=== PATIENT | female | born 1970 | race Caucasian/White ===

== ENCOUNTER 2021-12-01 12:17 | Inpatient (IN) | payer MEDICAID ==
[~2021-12-01] VITALS: Ht 160 cm; Wt 118.9 kg
[2021-12-01] VITALS (7 sets, daily range): BP systolic 70–136; BP diastolic 52–104
--- NOTE | 2021-12-01 12:52 | NUR ---
at bedside to examine pt.
[2021-12-01] MEDS ORDERED: APRE30TA2 PO (12:55)
[2021-12-01] MEDS ORDERED: PRED50TA PO (12:55)
[2021-12-01] MEDS ORDERED: DILTIAZEM HCL 50 MG IV ONE (13:09)
[2021-12-01] MEDS ORDERED: DILTIAZEM HCL 25 MG IV IV ONE (13:15)
[2021-12-01] MEDS ORDERED: DILTIAZEM HCL IV 125 MG in IV DEXTROSE 5% 100 ML IV ONE (13:15)
[2021-12-01 13:25] LABS: HEMATOCRIT 43.8 % (31.2-41.9); MEAN CORPUSCULAR HEMOGLOBIN 28.7 uug (24.7-32.8); MEAN CORPUSCULAR VOLUME 89.6 fL (75.5-95.3); PLATELET COUNT (AUTO) 212 K/uL (179-408)
[2021-12-01 13:56] LABS: CARBON DIOXIDE 27 mmol/L (21-32); CHLORIDE 105 mmol/L (98-107); CREATININE 1.4 mg/dL (0.6-1.3); GLUCOSE 144 mg/dL (74-106); POTASSIUM 5.1 mmol/L (3.5-5.1); UREA NITROGEN, BLOOD 60 mg/dL (7-18)
--- NOTE | 2021-12-01 14:00 | NUR ---
Increased Cardizem drip to 10 mg/hr, HR 130, BP 126/78.
[2021-12-01 14:10] LABS: ALANINE AMINOTRANSFERASE 41 U/L (14-59); ALKALINE PHOSPHATASE 211 U/L (50-136); ASPARTATE AMINOTRANSFERASE 13 U/L (15-37); BILIRUBIN,DIRECT 0.5 mg/dL (0.0-0.2); BILIRUBIN,TOTAL 1.2 mg/dL (0.2-1.0); TOTAL PROTEIN, SERUM 6.3 g/dL (6.4-8.2)
[2021-12-01] MEDS ORDERED: ASPIRIN 81 MG TAB.CHEW ONE (14:22)
--- NOTE | 2021-12-01 14:31 | NUR ---
Cardizem increased to 15mg/hr, HR 122, BP 120/72.
[2021-12-01] MEDS ORDERED: VANCOMYCIN IV 1,000 MG in IV DEXTROSE 5% 250 ML IV ONE (14:45)
[2021-12-01] MEDS ORDERED: PIPERACILLIN SODIUM/TAZOBACTAM 3.375 G in IV DEXTROSE 5% 50 ML IV ONE (14:45)
[2021-12-01] MEDS ORDERED: FUROSEMIDE 40 MG/4 ML VIAL IV ONE (14:45)
[2021-12-01] MEDS ORDERED: ASPIRIN 81 MG TAB.CHEW PO ONE ×2 (14:45)
[2021-12-01] MEDS ORDERED: VANCOMYCIN IV 200 ML ONE (14:56)
[2021-12-01] MEDS ORDERED: FUROSEMIDE 40 MG/4 ML VIAL ONE (14:56)
[2021-12-01] MEDS ORDERED: PIPERACILLIN/TAZOBACTAM/D5W 50 ML IV ONE (14:56)
[2021-12-01] MEDS ORDERED: IOHEXOL 350 100 ML INFUS..BTL ONE (15:29)
[2021-12-01] MEDS ORDERED: SWABABLE VALVE TRANSFER SET EA MC ONE (15:30)
[2021-12-01] MEDS ORDERED: IV NORMAL SALINE 250 ML IV ONE (15:30)
--- NOTE | 2021-12-01 16:08 | NUR ---
Pt signed consent for CTA, placed in the chart.
[2021-12-01] MEDS ORDERED: ENOXAPARIN SODIUM 100 MG/ML DISP.SYRIN SQ ONE ×2 (16:30→16:59)
--- NOTE | 2021-12-01 17:00 | NUR ---
Patient is a 51 year-old female admitted to ICU with diagnosis of A. fib with RVR/ACS/infection. Patient is AO x 4. Atrial fibrillation with heart rate in the 100s. Blood prssure 130/100. On 3L nasal cannula due to shortness of breath. Saturating in the 98%. Patient's abdomen is distended and firm. Patient presents with bilateral leg wound ulcers. Dressing intact. Awaiting admission orders.
[2021-12-01] MEDS ORDERED: ONDANSETRON 4 MG/2 ML VIAL IV PRN (18:00)
[2021-12-01] MEDS ORDERED: DEXTROSE 50% 50 ML DISP.SYRIN IV PRN (18:15)
[2021-12-01] MEDS ORDERED: AMIODARONE HCL IV 450 MG in IV DEXTROSE 5% 250 ML IV PRN (18:30)
[2021-12-01] MEDS ORDERED: AMIODARONE HCL IV 150 MG in IV DEXTROSE 5% 100 ML IV ONE (18:30)
--- NOTE | 2021-12-01 18:45 | NUR ---
Per Dr. Terrell, no bolus for heparin drip.
[2021-12-01] MEDS ORDERED: HEPARIN/D5W DRIP 500 ML IV PRN (19:30)
[2021-12-01] MEDS ORDERED: VANCOMYCIN IV 1,000 MG in IV DEXTROSE 5% 250 ML IV SCH (20:00)
--- NOTE | 2021-12-01 21:19 | NUR ---
Dr Olson into eval patient. Made aware of Vitals 73/33. Patient is awake A/Ox3. Denies CP, SOB. Dr Chavez will placed orders for low BP.
[2021-12-01] MEDS ORDERED: PIPERACILLIN SODIUM/TAZOBACTAM 3.375 G in IV DEXTROSE 5% 50 ML IV SCH (22:00)
[2021-12-01] MEDS: BLOOD SUGAR DIAGNOSTIC 1 EACH STRIP VI SCH (22:04)
[2021-12-01] MEDS ORDERED: DOCUSATE SODIUM 100 MG CAPSULE PO ONE (22:06)
[2021-12-01] MEDS ORDERED: methylPREDNISolone SOD SUCC 40 MG/ML VIAL ONE (22:06)
[2021-12-01] MEDS ORDERED: INSULIN REGULAR, HUMAN 300 UNIT/3 ML VIAL ONE (22:06)
[2021-12-01] MEDS: DOCUSATE SODIUM 100 MG CAPSULE PO SCH (22:10)
[2021-12-01] MEDS: methylPREDNISolone SOD SUCC 40 MG/ML VIAL IV SCH (22:10)
[2021-12-01] MEDS: INSULIN REGULAR, HUMAN 300 UNIT/3 ML VIAL SQ PRN (22:14)
[2021-12-01] MEDS: CEFEPIME HCL 1 G in IV DEXTROSE 5% 50 ML IV SCH (22:26)
--- NOTE | 2021-12-01 23:00 | NUR ---
Piccline here to place line.
[2021-12-02] VITALS (21 sets, daily range): BP systolic 117–198; BP diastolic 55–130
--- NOTE | 2021-12-02 01:45 | NUR ---
Patient went down for CTA but was not done due to midline not flushing adequately.
[2021-12-02] MEDS: CEFEPIME HCL 1 G in IV DEXTROSE 5% 50 ML IV SCH ×3 (05:06→21:38)
[2021-12-02 05:13] LABS: HEMATOCRIT 43.2 % (31.2-41.9); MEAN CORPUSCULAR VOLUME 90.6 fL (75.5-95.3); PLATELET COUNT (AUTO) 217 K/uL (179-408)
[2021-12-02 05:28] LABS: BILIRUBIN,TOTAL 1.4 mg/dL (0.2-1.0); CREATININE 1.8 mg/dL (0.6-1.3); MAGNESIUM 2.7 mg/dL (1.8-2.4); PHOSPHOROUS 5.4 mg/dL (2.5-4.9); POTASSIUM 5.6 mmol/L (3.5-5.1); TOTAL PROTEIN, SERUM 6.3 g/dL (6.4-8.2)
[2021-12-02 05:39] LABS: THYROID STIMULATING HORMONE 2.295 mIU/mL (0.358-3.740)
[2021-12-02] MEDS ORDERED: PANTOPRAZOLE SODIUM 40 MG TABLET.DR PO ONE (07:07)
[2021-12-02] MEDS: PANTOPRAZOLE SODIUM 40 MG TABLET.DR PO SCH (07:08)
[2021-12-02] MEDS: BLOOD SUGAR DIAGNOSTIC 1 EACH STRIP VI SCH ×4 (07:11→21:14)
[2021-12-02] MEDS ORDERED: DILTIAZEM HCL 60 MG TABLET PO SCH (07:52)
[2021-12-02] MEDS ORDERED: DILTIAZEM HCL 30 MG TABLET PO SCH (08:00)
[2021-12-02] MEDS ORDERED: FUROSEMIDE 20 MG/2 ML VIAL IV SCH ×2 (09:00)
--- NOTE | 2021-12-02 09:54 | NUR ---
RN requested to come back later for US Kidneys since the patient is having breakfast.
[2021-12-02] MEDS ORDERED: methylPREDNISolone SOD SUCC 40 MG/ML VIAL ONE (09:59)
[2021-12-02] MEDS ORDERED: FUROSEMIDE 40 MG/4 ML VIAL ONE ×2 (09:59→18:04)
[2021-12-02 10:00] LABS: *BILIRUBIN,URIN 1+ (NEGATIVE); *BLOOD, URINE 3+ (NEGATIVE); *CLARITY,URINE CLEAR (CLEAR); *COLOR,URINE YELLOW (YELLOW); *KETONES,URINE NEGATIVE (NEGATIVE); LEUKOCYTE ESTERASE ,URINE NEGATIVE (NEGATIVE); NITRITE, URINE NEGATIVE (NEGATIVE); UGLUCOSE NEGATIVE (NEGATIVE)
[2021-12-02] MEDS ORDERED: DILTIAZEM HCL 60 MG TABLET ONE ×2 (10:00→18:03)
[2021-12-02 10:02] LABS: *CREATININE,URINE 179.8 mg/dL (30-125)
[2021-12-02] MEDS: methylPREDNISolone SOD SUCC 40 MG/ML VIAL IV SCH ×2 (10:03→21:17)
[2021-12-02] MEDS: FUROSEMIDE 40 MG/4 ML VIAL IVP SCH ×2 (10:05→18:09)
[2021-12-02] MEDS: APIXABAN 5 MG TABLET PO SCH ×2 (10:06→21:21)
--- NOTE | 2021-12-02 11:12 | NUR ---
Not enough room for the machine. ZEFERINO Mars will give a call to the tech when there is enough space for the machine.
--- NOTE | 2021-12-02 12:48 | NUR ---
WOUND CARE CONSULT: PT SEEN WITH [facility] FOR SKIN ASSESSMENT. PT NOTED TO HAVE BILATERAL LOWER LEG ULCERS, PRESENT ON ADMISSION. RECOMMEND DPM CONSULT. DR SALGADO NOTIFIED. RECOMMENDATIONS MADE FOR SKIN PROTECTION. DISCUSSED WITH NURSING STAFF. MD IN AGREEMENT WITH PLAN OF CARE.
[2021-12-02] MEDS ORDERED: REMEDY ESSENTIAL ZINC PASTE 113 GM TOP PRN (13:00)
[2021-12-02] MEDS: INSULIN REGULAR, HUMAN 300 UNIT/3 ML VIAL SQ PRN ×3 (13:13→21:25)
[2021-12-02 14:03] LABS: WBC,URINE 0-3 /HPF (0-3)
[2021-12-02 14:04] LABS: SQUAMOUS EPITHELIAL CELL,UR FEW /HPF (NONE SEEN)
[2021-12-02 14:08] LABS: BACTERIA,URINE MANY /HPF (NONE SEEN)
[2021-12-02] MEDS ORDERED: VANCOMYCIN IV 1,500 MG in IV DEXTROSE 5% 500 ML IV SCH (17:00)
[2021-12-02] MEDS: DILTIAZEM HCL 60 MG TABLET PO SCH (18:09)
[2021-12-02] MEDS: CLOTRIMAZOLE/BETAMET DIPROP CREAM 15 GM TUBE TOP SCH ×2 (18:17→21:20)
[2021-12-02] MEDS: DOCUSATE SODIUM 100 MG CAPSULE PO SCH (21:17)
[2021-12-02] MEDS: REMEDY ESSENTIAL ZINC PASTE 113 GM TOP SCH (21:20)
--- NOTE | 2021-12-02 21:49 | NUR ---
Received pt. AAOX4. Cardiac-manley on cont/uncontrolled A-fib in he low 100's. sbp within desired limits. Respiratory-manley pt. on 3LNC with saturation above 95%, pt. unable to lie on her back becoming short of breath and with labor breathing noted. IV access patent peripherally. ML to RUE patent and flushing well, with no signs of infiltration. BLE with dressing c.d.i. and will be treated as ordered.
--- NOTE | 2021-12-02 22:00 | NUR ---
At this time patient stating "I'm hangry I didn't get any food during the day and I want to eat". patient provided with left over dinner.
[2021-12-03] VITALS (27 sets, daily range): BP systolic 107–189; BP diastolic 48–123
[2021-12-03] MEDS: MORPHINE SULFATE 2 MG/1 ML DISP.SYRIN IV PRN ×2 (00:06→04:03)
[2021-12-03] MEDS: DILTIAZEM HCL 60 MG TABLET PO SCH ×2 (01:07→06:33)
--- NOTE | 2021-12-03 02:43 | NUR ---
for a sustained SBP 160's 180's production analyst press operator [employer] called and orders received from Dr. Johnson.
[2021-12-03] MEDS ORDERED: hydrALAZINE HCL 20 MG/1 ML VIAL IV PRN ×2 (02:45→06:00)
[2021-12-03 05:02] LABS: HEMATOCRIT 41.9 % (31.2-41.9); MEAN CORPUSCULAR HEMOGLOBIN 29.2 uug (24.7-32.8); MEAN CORPUSCULAR VOLUME 90.6 fL (75.5-95.3); PLATELET COUNT (AUTO) 215 K/uL (179-408)
[2021-12-03 05:13] LABS: BILIRUBIN,TOTAL 0.9 mg/dL (0.2-1.0); CREATININE 2.1 mg/dL (0.6-1.3); MAGNESIUM 2.4 mg/dL (1.8-2.4); PHOSPHOROUS 5.9 mg/dL (2.5-4.9); TOTAL PROTEIN, SERUM 6.5 g/dL (6.4-8.2)
[2021-12-03] MEDS: CEFEPIME HCL 1 G in IV DEXTROSE 5% 50 ML IV SCH (06:05)
[2021-12-03] MEDS: PANTOPRAZOLE SODIUM 40 MG TABLET.DR PO SCH (06:24)
[2021-12-03] MEDS ORDERED: DILTIAZEM HCL 30 MG TABLET ONE (06:30)
--- NOTE | 2021-12-03 06:40 | NUR ---
Left pt. resting comfortably, no c/o pain. On 3 LNC saturation of 99%. Cardiac-manley pt. on controlled A-fib rate of 80-to low 100's SBP now within desired limits. Earlier with the need of prn for higher sbp. pack to gravity adequate urine output. IV line patent. BLE wih dressing changed as ordered.
--- NOTE | 2021-12-03 07:48 | NUR ---
Dr. Brown at bedside assessing patient.
[2021-12-03] MEDS: INSULIN REGULAR, HUMAN 300 UNIT/3 ML VIAL SQ PRN ×4 (08:06→22:27)
[2021-12-03] MEDS: BLOOD SUGAR DIAGNOSTIC 1 EACH STRIP VI SCH ×4 (08:10→22:15)
--- NOTE | 2021-12-03 08:49 | NUR ---
ZEFERINO Chu requested to come back in half an hour.
[2021-12-03] MEDS: FUROSEMIDE 40 MG/4 ML VIAL IVP SCH ×2 (08:50→17:03)
[2021-12-03] MEDS: methylPREDNISolone SOD SUCC 40 MG/ML VIAL IV SCH ×2 (08:50→21:59)
[2021-12-03] MEDS: REMEDY ESSENTIAL ZINC PASTE 113 GM TOP SCH ×2 (08:51→21:00)
[2021-12-03] MEDS: CLOTRIMAZOLE/BETAMET DIPROP CREAM 15 GM TUBE TOP SCH ×2 (08:51→22:00)
[2021-12-03] MEDS ORDERED: DILTIAZEM HCL CD 240 MG CAP.SR.24H PO SCH (09:00)
[2021-12-03] MEDS: AMLODIPINE 5 MG TABLET PO SCH (09:06)
[2021-12-03] MEDS: APIXABAN 5 MG TABLET PO SCH ×2 (09:07→22:41)
[2021-12-03] MEDS: DILTIAZEM HCL CD 240 MG CAP.SR.24H PO SCH (10:00)
[2021-12-03] MEDS: CEFEPIME HCL 2 G in IV DEXTROSE 5% 100 ML IV SCH (14:16)
[2021-12-03] MEDS: hydrALAZINE HCL 50 MG TABLET PO SCH ×3 (14:19→22:42)
--- NOTE | 2021-12-03 16:43 | NUR ---
Report given to Robb MCGARRY.
--- NOTE | 2021-12-03 17:58 | NUR ---
Cancel transfer to telemetry due to increased SOB at rest, lethargy with 530mL output after Lasix given this morning. Informed cardiology and will keep in ICU and order ABGs.
[2021-12-03 18:17] LABS: ABG HCO3 23.6 mmol/L; ABG PO2 100.4 mmHg (75.0-100.0); ABG SITE RIGHT RADIAL; ABG TOTAL HEMOGLOBIN 14.1 G/dL (12.0-16.0); COHb 0.7 % (0.5-1.5); MetHb 0.2 % (0.0-1.5); O2Hb 96.7 % (94.0-97.0); VENT MODE Nasal Cannula
--- NOTE | 2021-12-03 19:30 | NUR ---
Called [facility] line and they notified me that Narayan Plunkett is covering [place] at this time. Notified Narayan that patient is being kept CCU status due to increased SOB, lethargy, and urine output of 500mL after Lasix was given this morning. Consulted with cardiology and recommended to draw ABG and to keep patient in CCU.
[2021-12-03] MEDS ORDERED: methylPREDNISolone SOD SUCC 40 MG/ML VIAL ONE (21:54)
[2021-12-03] MEDS ORDERED: DOCUSATE SODIUM 100 MG CAPSULE PO ONE (21:54)
[2021-12-03] MEDS: LINEZOLID 600 MG TABLET PO SCH (21:59)
[2021-12-03] MEDS: DOCUSATE SODIUM 100 MG CAPSULE PO SCH (22:00)
[2021-12-03] MEDS ORDERED: APIXABAN 5 MG TABLET ONE (22:31)
[2021-12-03] MEDS ORDERED: hydrALAZINE HCL 25 MG TABLET ONE (22:32)
[2021-12-04] VITALS (21 sets, daily range): BP systolic 114–168; BP diastolic 60–98
[2021-12-04] MEDS ORDERED: FUROSEMIDE 40 MG/4 ML VIAL ONE ×3 (00:44→16:48)
[2021-12-04] MEDS ORDERED: FUROSEMIDE 20 MG/2 ML VIAL ONE (00:45)
[2021-12-04] MEDS: FUROSEMIDE 40 MG/4 ML VIAL IVP SCH ×3 (01:10→16:50)
[2021-12-04] MEDS: CEFEPIME HCL 2 G in IV DEXTROSE 5% 100 ML IV SCH ×2 (01:13→14:24)
[2021-12-04] MEDS ORDERED: hydrALAZINE HCL 25 MG TABLET ONE ×2 (06:24→14:25)
[2021-12-04] MEDS: hydrALAZINE HCL 50 MG TABLET PO SCH ×3 (06:29→21:20)
[2021-12-04] MEDS ORDERED: PANTOPRAZOLE SODIUM 40 MG TABLET.DR PO ONE (07:32)
[2021-12-04] MEDS: PANTOPRAZOLE SODIUM 40 MG TABLET.DR PO SCH (07:38)
[2021-12-04] MEDS: BLOOD SUGAR DIAGNOSTIC 1 EACH STRIP VI SCH ×4 (07:38→21:07)
[2021-12-04 07:40] LABS: HEMATOCRIT 39.3 % (31.2-41.9); MEAN CORPUSCULAR HEMOGLOBIN 28.9 uug (24.7-32.8); MEAN CORPUSCULAR VOLUME 89.9 fL (75.5-95.3); PLATELET COUNT (AUTO) 232 K/uL (179-408)
[2021-12-04] MEDS: INSULIN REGULAR, HUMAN 300 UNIT/3 ML VIAL SQ PRN ×4 (07:52→21:08)
[2021-12-04 07:56] LABS: BILIRUBIN,TOTAL 0.9 mg/dL (0.2-1.0); CREATININE 2.1 mg/dL (0.6-1.3); MAGNESIUM 2.5 mg/dL (1.8-2.4); POTASSIUM 3.9 mmol/L (3.5-5.1); TOTAL PROTEIN, SERUM 6.6 g/dL (6.4-8.2)
[2021-12-04] MEDS ORDERED: METOLAZONE 2.5 MG TABLET PO ONE (08:15)
[2021-12-04] MEDS ORDERED: DILTIAZEM HCL CD 120 MG CAP.SR.24H PO ONE (08:33)
[2021-12-04] MEDS ORDERED: AMLODIPINE 5 MG TABLET ONE (08:33)
[2021-12-04] MEDS ORDERED: methylPREDNISolone SOD SUCC 40 MG/ML VIAL ONE ×2 (08:33→21:24)
[2021-12-04] MEDS: AMLODIPINE 5 MG TABLET PO SCH (08:39)
[2021-12-04] MEDS: LINEZOLID 600 MG TABLET PO SCH ×2 (08:40→21:19)
[2021-12-04] MEDS: DILTIAZEM HCL CD 240 MG CAP.SR.24H PO SCH (08:40)
[2021-12-04] MEDS: methylPREDNISolone SOD SUCC 40 MG/ML VIAL IV SCH ×2 (08:41→21:25)
[2021-12-04] MEDS: THERAHONEY GEL 1.5 OZ TUBE TOP SCH (08:43)
[2021-12-04] MEDS: REMEDY ESSENTIAL ZINC PASTE 113 GM TOP SCH ×2 (08:43→21:07)
[2021-12-04] MEDS: CLOTRIMAZOLE/BETAMET DIPROP CREAM 15 GM TUBE TOP SCH ×2 (08:43→21:22)
[2021-12-04] MEDS: APIXABAN 5 MG TABLET PO SCH ×2 (08:52→21:21)
--- NOTE | 2021-12-04 20:00 | NUR ---
PATIENT FAMILY MEMBERS AT B/S VISITING PATIENT .
--- NOTE | 2021-12-04 21:07 | NUR ---
FINGERSTICK DONE 239 MG/DL FOLLOW INSULIN SLIDING SCALE .
--- NOTE | 2021-12-04 21:15 | NUR ---
PER PATIENT SE DID NOT EAT DINNER ,GIVEN DINNER TRAY .PATIENT ABLE TO FEED SELF AND HOB UP 30 DEGREES . DUE MEDICATION GIVEN AND SCAN SEE EMAR .
[2021-12-04] MEDS ORDERED: DOCUSATE SODIUM 100 MG CAPSULE PO ONE (21:24)
[2021-12-04] MEDS: DOCUSATE SODIUM 100 MG CAPSULE PO SCH (21:25)
[2021-12-04] MEDS ORDERED: ACETAMINOPHEN 325 MG TABLET ONE (23:05)
[2021-12-04] MEDS: ACETAMINOPHEN 325 MG TABLET PO PRN (23:09)
--- NOTE | 2021-12-04 23:13 | NUR ---
PATIENT REQUESTED FOR PAIN MEDICATION C/O BILATERAL LOWER LEG PAIN 11/16, GIVEN PRN TYLENO FOR PAIN . BILATERAL LOWER EXTREMITIES ELEVATED WITH PILLOWS .
[2021-12-05] VITALS (15 sets, daily range): BP systolic 99–155; BP diastolic 50–110
[2021-12-05] MEDS ORDERED: FUROSEMIDE 40 MG/4 ML VIAL ONE ×2 (00:29→08:13)
[2021-12-05] MEDS: FUROSEMIDE 40 MG/4 ML VIAL IVP SCH ×3 (00:31→17:23)
[2021-12-05] MEDS: CEFEPIME HCL 2 G in IV DEXTROSE 5% 100 ML IV SCH (01:12)
--- NOTE | 2021-12-05 01:30 | NUR ---
SLEEPING IN BED ON AND OFF ANSWERS HER CELL PHONE .
--- NOTE | 2021-12-05 01:38 | NUR ---
WITH ANOTHER RN TURNED AND REPOSITION PATIENT . ELEVATED BILATERAL LOWER EXTREMITIES WITH PILLOWS . OFFLOADED BACK WITH PILLOWS .
--- NOTE | 2021-12-05 04:30 | NUR ---
AM CARE DONE,BATH PATIENT WITH CONCRETE CURER HELP .CHANGED SOILED LINENS AND GOWN .PERINEAL CARE AND CHAVEZ CARE DONE . ASSISTED WITH ORAL CARE . TURNED AND REPOSITION AND BUE ELEVATED WITH PILLOW HEELS OFF LOADED FROM BED .
[2021-12-05 04:54] LABS: HEMATOCRIT 37.6 % (31.2-41.9); MEAN CORPUSCULAR VOLUME 89.1 fL (75.5-95.3); PLATELET COUNT (AUTO) 201 K/uL (179-408)
[2021-12-05 05:00] LABS: CREATININE 2.1 mg/dL (0.6-1.3); POTASSIUM 2.9 mmol/L (3.5-5.1)
[2021-12-05] MEDS ORDERED: PANTOPRAZOLE SODIUM 40 MG TABLET.DR PO ONE (05:42)
[2021-12-05] MEDS: hydrALAZINE HCL 50 MG TABLET PO SCH ×3 (05:43→21:29)
[2021-12-05] MEDS: PANTOPRAZOLE SODIUM 40 MG TABLET.DR PO SCH (06:02)
[2021-12-05] MEDS: BLOOD SUGAR DIAGNOSTIC 1 EACH STRIP VI SCH ×4 (06:51→21:18)
--- NOTE | 2021-12-05 07:15 | NUR ---
Received report from cyber intelligence analyst nurse, patients midline has no blood return and was qauestionable placement as the arm is bruised and swollen. Midline removed and informed supervisor cartography for need of replacement with PICC line.
[2021-12-05] MEDS: INSULIN REGULAR, HUMAN 300 UNIT/3 ML VIAL SQ PRN ×4 (07:27→21:28)
[2021-12-05] MEDS ORDERED: POTASSIUM CHLORIDE 20 MEQ POWDER PACKET GT ONE (07:45)
[2021-12-05 08:06] LABS: A/G RATIO 0.8 (0.7-1.7); ALBUMIN 2.7 g/dL (2.9-4.4); ALBUMIN 2.8 g/dL (2.9-4.4); ALPHA-1-GLOBULIN 0.3 g/dL (0.0-0.4); ALPHA-1-GLOBULIN 0.4 g/dL (0.0-0.4); ALPHA-2-GLOBULIN 0.8 g/dL (0.4-1.0); ALPHA-2-GLOBULIN 0.9 g/dL (0.4-1.0); BETA GLOBULIN 1.1 g/dL (0.7-1.3); BETA GLOBULIN 1.2 g/dL (0.7-1.3); GLOBULIN, TOTAL 3.4 g/dL (2.2-3.9); M-SPIKE Not Observed g/dL (Not Observed)
[2021-12-05] MEDS ORDERED: LINEZOLID 600 MG/300 ML PIGGYBACK IV ONE (08:13)
[2021-12-05] MEDS ORDERED: methylPREDNISolone SOD SUCC 40 MG/ML VIAL ONE (08:13)
[2021-12-05] MEDS ORDERED: AMLODIPINE 5 MG TABLET ONE (08:13)
[2021-12-05] MEDS ORDERED: POTASSIUM CHLORIDE 20 MEQ POWDER PACKET ONE (08:13)
[2021-12-05] MEDS ORDERED: CARVEDILOL 25 MG TABLET ONE (08:13)
[2021-12-05] MEDS: CARVEDILOL 25 MG TABLET PO SCH ×2 (08:16→17:23)
[2021-12-05] MEDS: methylPREDNISolone SOD SUCC 40 MG/ML VIAL IV SCH ×2 (08:16→21:12)
[2021-12-05] MEDS: AMLODIPINE 5 MG TABLET PO SCH (08:17)
[2021-12-05] MEDS: LINEZOLID 600 MG TABLET PO SCH ×2 (08:18→21:14)
[2021-12-05] MEDS: REMEDY ESSENTIAL ZINC PASTE 113 GM TOP SCH ×2 (08:19→21:24)
[2021-12-05] MEDS: CLOTRIMAZOLE/BETAMET DIPROP CREAM 15 GM TUBE TOP SCH ×2 (08:19→21:25)
[2021-12-05] MEDS: THERAHONEY GEL 1.5 OZ TUBE TOP SCH (08:19)
[2021-12-05] MEDS: APIXABAN 5 MG TABLET PO SCH ×2 (08:21→21:18)
--- NOTE | 2021-12-05 10:00 | NUR ---
Attempted to insert PICC line, although it was not long enough so Provider cut line to be a tripple lumen midline. Blood return present, saline locked at this time. Two other peripheral IV's leaking and need replacement or removal. Report called to Raquel and transfered patient to 3rd floor. Notified her that patient is to be telemetry and pack catheter was emptied this morning and it is all today's output.
--- NOTE | 2021-12-05 12:03 | NUR ---
TRIPLE LUMEN MIDLINE INSERTED IN LEFT FOREARM. TRIED TO INSERT CENTRAL LINE BUT WAS ABLE TO THREAD THRU ACCORDING TO ALCOHOLIC COUNSELOR SO HE JUST MADE IT A MIDLINE
[2021-12-05] MEDS ORDERED: CEFEPIME HCL 2 G in IV DEXTROSE 5% 100 ML IV SCH (14:00)
[2021-12-05] MEDS: DOCUSATE SODIUM 100 MG CAPSULE PO SCH (21:13)
[2021-12-05] MEDS: ACETAMINOPHEN 325 MG TABLET PO PRN (22:49)
[2021-12-06 00:17] VITALS: BP 127/69
[2021-12-06 04:30] VITALS: BP 114/63
[2021-12-06] MEDS: hydrALAZINE HCL 50 MG TABLET PO SCH ×3 (05:44→21:01)
[2021-12-06] MEDS: PANTOPRAZOLE SODIUM 40 MG TABLET.DR PO SCH (06:12)
[2021-12-06] MEDS: BLOOD SUGAR DIAGNOSTIC 1 EACH STRIP VI SCH ×4 (06:32→21:14)
--- NOTE | 2021-12-06 06:36 | NUR ---
Patient slept intermittently.Alert and confused.On O2 at 2LPM via Nc sating 95%.Midline on left upper arm. Funes catheter in place draining well. Dressing changed on Bilateral lower legs with edema. Tolerated well. Elevated with pillow.Call light with in reach.Will endorsed to oncoming shift.
[2021-12-06 07:16] LABS: CREATININE 2.1 mg/dL (0.6-1.3); POTASSIUM 3.3 mmol/L (3.5-5.1)
[2021-12-06 07:17] LABS: HEMATOCRIT 40.2 % (31.2-41.9); MEAN CORPUSCULAR HEMOGLOBIN 29.5 uug (24.7-32.8); MEAN CORPUSCULAR VOLUME 92.2 fL (75.5-95.3); PLATELET COUNT (AUTO) 163 K/uL (179-408)
[2021-12-06] MEDS: CARVEDILOL 25 MG TABLET PO SCH ×2 (08:00→17:15)
[2021-12-06] MEDS: AMLODIPINE 5 MG TABLET PO SCH (08:16)
[2021-12-06] MEDS: FUROSEMIDE 40 MG/4 ML VIAL IVP SCH ×2 (08:17→17:07)
[2021-12-06] MEDS: LINEZOLID 600 MG TABLET PO SCH (08:17)
[2021-12-06] MEDS: methylPREDNISolone SOD SUCC 40 MG/ML VIAL IV SCH ×2 (08:18→20:57)
[2021-12-06] MEDS: APIXABAN 5 MG TABLET PO SCH ×2 (08:21→20:57)
[2021-12-06] MEDS: INSULIN REGULAR, HUMAN 300 UNIT/3 ML VIAL SQ PRN ×4 (08:22→21:17)
[2021-12-06] MEDS: CLOTRIMAZOLE/BETAMET DIPROP CREAM 15 GM TUBE TOP SCH ×2 (08:27→20:59)
[2021-12-06] MEDS: REMEDY ESSENTIAL ZINC PASTE 113 GM TOP SCH ×2 (08:28→20:58)
[2021-12-06] MEDS: THERAHONEY GEL 1.5 OZ TUBE TOP SCH (08:28)
[2021-12-06] MEDS ORDERED: POTASSIUM CHLORIDE 10 MEQ TAB.PRT.SR PO ONE (09:30)
[2021-12-06 11:02] VITALS: BP 125/82
[2021-12-06] MEDS: PIPERACILLIN/TAZO 2.25 G in IV DEXTROSE 5% 50 ML IV SCH ×3 (12:44→23:24)
[2021-12-06] MEDS: ACIDOPHILUS/BULGARICUS CHEW TAB PO SCH ×2 (14:02→21:02)
[2021-12-06 15:02] VITALS: BP 129/75
[2021-12-06 20:20] VITALS: BP 146/79
[2021-12-06] MEDS: DOCUSATE SODIUM 100 MG CAPSULE PO SCH (20:56)
[2021-12-06] MEDS: IV NS 1000 ML 1,000 ML IV SCH (23:52)
[2021-12-07 00:14] VITALS: BP 111/55
[2021-12-07 04:21] VITALS: BP 104/66
[2021-12-07] MEDS: PIPERACILLIN/TAZO 2.25 G in IV DEXTROSE 5% 50 ML IV SCH (05:36)
[2021-12-07] MEDS: ACIDOPHILUS/BULGARICUS CHEW TAB PO SCH ×3 (05:47→21:04)
[2021-12-07] MEDS: hydrALAZINE HCL 50 MG TABLET PO SCH ×3 (06:00→21:08)
[2021-12-07] MEDS: PANTOPRAZOLE SODIUM 40 MG TABLET.DR PO SCH (06:17)
--- NOTE | 2021-12-07 06:30 | NUR ---
Patient slept intermittently throughout the night. AOx4. On 1L NC saturating at 97%. Occasionally patient will wake up sleep talking and a bit forgetful. Able to make all needs known. Wound care done on bilateral lower leg extremities. PICC line intact, saline flushed. Zosyn abx given. No complaints of pain at this time. No signs of acute distress noted. Call light and belonings placed within reach. Safety measures maintained. Will endorse to am shift.
[2021-12-07 06:32] LABS: HEMATOCRIT 38.9 % (31.2-41.9); MEAN CORPUSCULAR HEMOGLOBIN 29.2 uug (24.7-32.8); MEAN CORPUSCULAR VOLUME 89.4 fL (75.5-95.3); PLATELET COUNT (AUTO) 170 K/uL (179-408)
[2021-12-07 07:25] LABS: CREATININE 1.8 mg/dL (0.6-1.3); POTASSIUM 3.1 mmol/L (3.5-5.1)
[2021-12-07] MEDS: INSULIN REGULAR, HUMAN 300 UNIT/3 ML VIAL SQ PRN ×4 (08:00→21:15)
--- NOTE | 2021-12-07 08:00 | NUR ---
Bruising noted on UE's and more prominent on right arm posterior. PICC line on left arm flushing well with minimal resistance. Dr Baldwin saw patient. Call light is within reach. Pt speaks italian but able to make her needs known with minimal Telugu. Pt denies any c/o pain.
[2021-12-07] MEDS: BLOOD SUGAR DIAGNOSTIC 1 EACH STRIP VI SCH ×4 (08:48→21:13)
[2021-12-07] MEDS: methylPREDNISolone SOD SUCC 40 MG/ML VIAL IV SCH ×2 (08:51→20:52)
[2021-12-07] MEDS: APIXABAN 5 MG TABLET PO SCH ×2 (08:51→21:02)
[2021-12-07] MEDS: FUROSEMIDE 40 MG/4 ML VIAL IVP SCH ×2 (08:51→16:45)
[2021-12-07] MEDS: CLOTRIMAZOLE/BETAMET DIPROP CREAM 15 GM TUBE TOP SCH ×2 (08:58→21:03)
[2021-12-07] MEDS: CARVEDILOL 25 MG TABLET PO SCH ×2 (08:58→16:52)
[2021-12-07] MEDS: AMLODIPINE 5 MG TABLET PO SCH (08:58)
[2021-12-07] MEDS: REMEDY ESSENTIAL ZINC PASTE 113 GM TOP SCH ×2 (08:59→21:04)
[2021-12-07] MEDS: THERAHONEY GEL 1.5 OZ TUBE TOP SCH (08:59)
[2021-12-07] MEDS: IV NS 1000 ML 1,000 ML IV SCH ×2 (09:00→20:49)
[2021-12-07] MEDS ORDERED: POTASSIUM CHLORIDE 20 MEQ TAB.PRT.SR PO ONE (09:15)
[2021-12-07 11:59] VITALS: BP 115/75
--- NOTE | 2021-12-07 13:00 | NUR ---
Dressing changed as ordered on SANJANA LE's. Left leg wound on anterior bland reddened colored and blister has popped. Serous sanguinous drainage noted moderate. Noted wound on left posterior calf noted redness and serous drainage. Right leg noted redness and wound on bland area. dressing changed as ordered.
[2021-12-07] MEDS: PIPERACILLIN SODIUM/TAZOBACTAM 3.375 G in IV DEXTROSE 5% 100 ML IV SCH ×2 (14:15→21:19)
[2021-12-07 16:19] VITALS: BP 107/62
--- NOTE | 2021-12-07 17:54 | NUR ---
Pt had good output in Funes cath more than 3000 cc. Limit fluid intake effective. PT is in no acute distress. Call light is within reach.
--- NOTE | 2021-12-07 19:40 | NUR ---
Patient awake, verbally responsive, family at bedside, no sob no chest pain, denies pain at this time, refused to take pain medications, kept lower extremities elevated with pillow, dressing intact, tele monitor A fib control, cont to monitor.
[2021-12-07 20:25] VITALS: BP 99/64
[2021-12-07] MEDS: DOCUSATE SODIUM 100 MG CAPSULE PO SCH (20:52)
[2021-12-08 00:36] VITALS: BP 98/57
[2021-12-08 04:14] VITALS: BP 107/83
[2021-12-08] MEDS: ACIDOPHILUS/BULGARICUS CHEW TAB PO SCH ×3 (05:16→21:52)
[2021-12-08] MEDS: hydrALAZINE HCL 50 MG TABLET PO SCH (05:17)
[2021-12-08] MEDS: PANTOPRAZOLE SODIUM 40 MG TABLET.DR PO SCH (05:19)
[2021-12-08] MEDS: BLOOD SUGAR DIAGNOSTIC 1 EACH STRIP VI SCH ×4 (05:24→20:45)
[2021-12-08] MEDS: PIPERACILLIN SODIUM/TAZOBACTAM 3.375 G in IV DEXTROSE 5% 100 ML IV SCH ×3 (05:26→21:52)
[2021-12-08] MEDS: IV NS 1000 ML 1,000 ML IV SCH (06:05)
--- NOTE | 2021-12-08 06:38 | NUR ---
Patient asleep but arousable, no sob no chest pain, tele monitor A fib rate control, denies pain at this time, turn and reposition, kept lower extremities elevated with pillow, BS stable, kept comfortable, cont to monitor.
[2021-12-08 06:40] LABS: HEMATOCRIT 39.6 % (31.2-41.9); MEAN CORPUSCULAR HEMOGLOBIN 28.9 uug (24.7-32.8); MEAN CORPUSCULAR VOLUME 89.9 fL (75.5-95.3); PLATELET COUNT (AUTO) 162 K/uL (179-408)
[2021-12-08 06:56] LABS: CREATININE 1.3 mg/dL (0.6-1.3); POTASSIUM 3.3 mmol/L (3.5-5.1)
--- NOTE | 2021-12-08 09:00 | NUR ---
Pt more awake and alert and communicative on what she wants. Pt denies any c/o pain. Call light is within reach.
[2021-12-08] MEDS ORDERED: POTASSIUM CHLORIDE 20 MEQ POWDER PACKET PO ONE (10:00)
[2021-12-08] MEDS: methylPREDNISolone SOD SUCC 40 MG/ML VIAL IV SCH ×2 (10:01→20:30)
[2021-12-08] MEDS: APIXABAN 5 MG TABLET PO SCH ×2 (10:02→20:32)
[2021-12-08] MEDS: CLOTRIMAZOLE/BETAMET DIPROP CREAM 15 GM TUBE TOP SCH ×2 (10:03→20:52)
[2021-12-08] MEDS: REMEDY ESSENTIAL ZINC PASTE 113 GM TOP SCH ×2 (10:03→20:53)
[2021-12-08] MEDS: THERAHONEY GEL 1.5 OZ TUBE TOP SCH (10:03)
[2021-12-08] MEDS: CARVEDILOL 25 MG TABLET PO SCH ×2 (10:08→17:56)
[2021-12-08] MEDS: ACETAzolamide 250 MG TABLET PO SCH ×2 (10:11→20:34)
[2021-12-08 11:53] VITALS: BP 108/80
[2021-12-08] MEDS: INSULIN REGULAR, HUMAN 300 UNIT/3 ML VIAL SQ PRN ×3 (12:21→20:47)
[2021-12-08 16:00] VITALS: BP 107/62
--- NOTE | 2021-12-08 18:30 | NUR ---
Daughter at bedside throughout the day. Notified Dr Escoto (nephro) that daughter would like to speak with him. Daughter awaiting call back. Pt is in no acute distress.
[2021-12-08 20:00] VITALS: BP 122/70
[2021-12-08] MEDS: DOCUSATE SODIUM 100 MG CAPSULE PO SCH (20:31)
[2021-12-08] MEDS: ACETAMINOPHEN 325 MG TABLET PO PRN (23:00)
[2021-12-09 04:00] VITALS: BP 125/72
[2021-12-09] MEDS: ACIDOPHILUS/BULGARICUS CHEW TAB PO SCH ×3 (05:13→21:06)
[2021-12-09] MEDS: PIPERACILLIN SODIUM/TAZOBACTAM 3.375 G in IV DEXTROSE 5% 100 ML IV SCH ×3 (05:13→21:10)
[2021-12-09] MEDS: BLOOD SUGAR DIAGNOSTIC 1 EACH STRIP VI SCH ×4 (05:46→21:18)
[2021-12-09] MEDS: PANTOPRAZOLE SODIUM 40 MG TABLET.DR PO SCH (06:09)
[2021-12-09 06:23] LABS: HEMATOCRIT 40.4 % (31.2-41.9); MEAN CORPUSCULAR HEMOGLOBIN 29.1 uug (24.7-32.8); MEAN CORPUSCULAR VOLUME 91.6 fL (75.5-95.3); PLATELET COUNT (AUTO) 150 K/uL (179-408)
[2021-12-09 06:37] LABS: CREATININE 1.4 mg/dL (0.6-1.3); POTASSIUM 3.3 mmol/L (3.5-5.1)
[2021-12-09] MEDS ORDERED: POTASSIUM CHLORIDE 20 MEQ POWDER PACKET PO ONE (07:15)
[2021-12-09] MEDS ORDERED: POTASSIUM CHLORIDE 20 MEQ TAB.PRT.SR PO ONE ×2 (07:15→12:00)
[2021-12-09] MEDS: INSULIN REGULAR, HUMAN 300 UNIT/3 ML VIAL SQ PRN ×4 (08:30→21:12)
[2021-12-09] MEDS: methylPREDNISolone SOD SUCC 40 MG/ML VIAL IV SCH ×2 (08:31→21:06)
[2021-12-09] MEDS: APIXABAN 5 MG TABLET PO SCH ×2 (08:32→21:08)
[2021-12-09] MEDS: CARVEDILOL 25 MG TABLET PO SCH ×2 (08:33→17:01)
[2021-12-09] MEDS: ACETAzolamide SODIUM 500 MG VIAL IV SCH (08:33)
[2021-12-09] MEDS: CLOTRIMAZOLE/BETAMET DIPROP CREAM 15 GM TUBE TOP SCH ×2 (08:34→21:09)
[2021-12-09] MEDS: THERAHONEY GEL 1.5 OZ TUBE TOP SCH (08:34)
[2021-12-09] MEDS: REMEDY ESSENTIAL ZINC PASTE 113 GM TOP SCH ×2 (08:34→21:09)
--- NOTE | 2021-12-09 09:48 | NUR ---
ABGs reproted to dr fatima and to dr perry.
[2021-12-09 11:40] VITALS: BP 125/71
[2021-12-09 12:35] LABS: ABG BASE EXCESS 8.6 mmol/L; ABG HCO3 36.5 mmol/L; ABG PCO2 66.4 mmHg (35.0-45.0); ABG PH 7.358 (7.350-7.450); ABG PO2 143.6 mmHg (75.0-100.0); ABG SITE LEFT RADIAL; ABG TOTAL HEMOGLOBIN 13.6 G/dL (12.0-16.0); COHb 1.4 % (0.5-1.5); MetHb 0.3 % (0.0-1.5); O2Hb 97.4 % (94.0-97.0); VENT MODE Nasal Cannula
--- NOTE | 2021-12-09 13:00 | NUR ---
patient kept off the oxygen, saturating at 93-95% on room air, however desaturates on deep sleeping to 88%, noted with mild to moderate hematuria as well, dr petersen made aware, with orders, will continue to monitor.
--- NOTE | 2021-12-09 13:42 | NUR ---
7373 Patient EKG reported to dr xavier, per Dr Xavier continue to monitor, patient is sleeping and no acute distress noted, saturating at 94% at room air, sister is at bedside. patient tolerated meals well, no nausea, no vomit noted.
[2021-12-09 16:00] VITALS: BP 127/68
--- NOTE | 2021-12-09 17:31 | NUR ---
Patient slept intermittency thought out the shft, kept on room air, saturating at 93-95%, no distress noted, verbally responsive, ambulated with PT, and ambulates to the bathroom with supervision, BIPAP ordered, spoke to RT and made aware about BIPAP order. dressing done to both lower extremities, wrapped with MIRNA wrap as well, PICC line dressing changed, flushed, patent, patient hematuria resolved, draining yellow color urine in the pack catheter.
[2021-12-09 20:00] VITALS: BP 118/71
[2021-12-09] MEDS: DOCUSATE SODIUM 100 MG CAPSULE PO SCH (21:00)
[2021-12-09] MEDS: MORPHINE SULFATE 2 MG/1 ML DISP.SYRIN IV PRN (23:33)
[2021-12-10] VITALS: BP 131/93
--- NOTE | 2021-12-10 01:00 | NUR ---
Patient is upset removing CPAP mask multiple times. Mask is adjusted by this RN and RT but patient does not want to keep CPAP on, is adamant.
--- NOTE | 2021-12-10 01:06 | NUR ---
PATIENT PLACED ON CPAP MACHINE @00:01 - WITH FULL LARGE MASK, PT CLAIMS SHE WEARS A SMALL NASAL MASK AT HOME, PT TENDS TO MOVE AROUND, AND HAS TAKEN OFF MASK AT TIMES, PT ON 21% ROOM AIR, FOR NOW , SAT 89-92%.Malcolm DESIR RCP Addendum: 12/10/21 at 0108 by JOSÉ MIGUEL DESIR RT Amended: Links added.
[2021-12-10] MEDS: MORPHINE SULFATE 2 MG/1 ML DISP.SYRIN IV PRN (03:24)
[2021-12-10 04:00] VITALS: BP 128/92
--- NOTE | 2021-12-10 05:10 | NUR ---
Patient slept seldom this shift.Noted with multiple episodes of crying and moaning, when assessed patient c/o generalized pain. Morphine IV provided as ordered. Patient is alert and oriented to person and place. at bedside in beginning of the shift. Telemetry is AFIB with HR in 100's. Occasional SOB noted, 02 sats 88-97%. Patient continues to refuse CPAP, risk and benefits explained, patient verbalizes understanding but continues to refuse CPAP. Safety measures continued. Call light within reach.
[2021-12-10] MEDS: PIPERACILLIN SODIUM/TAZOBACTAM 3.375 G in IV DEXTROSE 5% 100 ML IV SCH ×3 (05:47→21:03)
[2021-12-10] MEDS: PANTOPRAZOLE SODIUM 40 MG TABLET.DR PO SCH (05:47)
[2021-12-10] MEDS: ACIDOPHILUS/BULGARICUS CHEW TAB PO SCH ×3 (05:47→21:05)
[2021-12-10 06:28] LABS: HEMATOCRIT 39.9 % (31.2-41.9); MEAN CORPUSCULAR HEMOGLOBIN 28.7 uug (24.7-32.8); MEAN CORPUSCULAR VOLUME 89.4 fL (75.5-95.3); PLATELET COUNT (AUTO) 161 K/uL (179-408)
[2021-12-10] MEDS: BLOOD SUGAR DIAGNOSTIC 1 EACH STRIP VI SCH ×4 (06:33→20:59)
[2021-12-10 06:41] LABS: CREATININE 1.4 mg/dL (0.6-1.3); MAGNESIUM 2.4 mg/dL (1.8-2.4); PHOSPHOROUS 2.9 mg/dL (2.5-4.9); POTASSIUM 3.4 mmol/L (3.5-5.1)
[2021-12-10 07:28] LABS: ABG HCO3 33.5 mmol/L; ABG PCO2 55.4 mmHg (35.0-45.0); ABG PO2 49.1 mmHg (75.0-100.0); ABG SITE RIGHT RADIAL; COHb 1.4 % (0.5-1.5); MetHb 0.1 % (0.0-1.5); O2Hb 83.5 % (94.0-97.0); VENT MODE room air
--- NOTE | 2021-12-10 08:00 | NUR ---
ABGs result from today reported to dr perry
[2021-12-10] MEDS: INSULIN REGULAR, HUMAN 300 UNIT/3 ML VIAL SQ PRN ×4 (08:17→21:09)
[2021-12-10 08:36] LABS: BILIRUBIN,DIRECT 0.4 mg/dL (0.0-0.2); BILIRUBIN,TOTAL 1.1 mg/dL (0.2-1.0)
[2021-12-10] MEDS ORDERED: POTASSIUM CHLORIDE 20 MEQ POWDER PACKET PO ONE (09:00)
[2021-12-10] MEDS: methylPREDNISolone SOD SUCC 40 MG/ML VIAL IV SCH ×2 (09:35→20:52)
[2021-12-10] MEDS: SPIRONOLACTONE 25 MG TABLET PO SCH (09:35)
[2021-12-10] MEDS: ACETAzolamide SODIUM 500 MG VIAL IV SCH (09:36)
[2021-12-10] MEDS: APIXABAN 5 MG TABLET PO SCH ×2 (09:43→20:54)
[2021-12-10] MEDS: CARVEDILOL 25 MG TABLET PO SCH ×2 (09:44→17:17)
[2021-12-10] MEDS: INSULIN GLARGINE,HUM 300 UNITS/3 ML CARTRIDGE SQ SCH (09:47)
[2021-12-10] MEDS: CLOTRIMAZOLE/BETAMET DIPROP CREAM 15 GM TUBE TOP SCH ×2 (09:51→20:54)
[2021-12-10] MEDS: REMEDY ESSENTIAL ZINC PASTE 113 GM TOP SCH ×2 (09:52→20:55)
[2021-12-10] MEDS: THERAHONEY GEL 1.5 OZ TUBE TOP SCH (09:52)
[2021-12-10] MEDS ORDERED: FUROSEMIDE 40 MG/4 ML VIAL IV ONE (10:00)
[2021-12-10 12:00] VITALS: BP 130/75
[2021-12-10 15:50] VITALS: BP 119/80
--- NOTE | 2021-12-10 18:43 | NUR ---
patient was awake intermittently during the shift, no acute distress noted, bilateral legs wound care provided, spong bath given, no acute distress noted during shift.
--- NOTE | 2021-12-10 19:30 | NUR ---
Received pt awake, alert and orientedx2. As per odalys pt is confused and can't recognize her. Pt in no acute distress. Iv intact. Safety and comfort provided.Pt on nasal cannula at 1L. Will continue to monitor.
[2021-12-10 20:00] VITALS: BP 109/71
[2021-12-10] MEDS: DOCUSATE SODIUM 100 MG CAPSULE PO SCH (20:52)
[2021-12-11] VITALS: BP 128/65
[2021-12-11] MEDS: MORPHINE SULFATE 2 MG/1 ML DISP.SYRIN IV PRN ×2 (00:28→14:18)
--- NOTE | 2021-12-11 01:54 | NUR ---
At 0028h morphine 2mg prn given for generalized pain of 7/10 pain scale. Pt tolerated it well. After an hour morphine medication effective.Pt in no acute distress. Will continue to monitor.
--- NOTE | 2021-12-11 01:57 | NUR ---
Pt repeatedly taking off her nasal cannula. Reorientation needed. Constant monitoring needed.
[2021-12-11 04:00] VITALS: BP 138/88
[2021-12-11] MEDS: ACIDOPHILUS/BULGARICUS CHEW TAB PO SCH ×3 (05:56→21:16)
[2021-12-11] MEDS: PIPERACILLIN SODIUM/TAZOBACTAM 3.375 G in IV DEXTROSE 5% 100 ML IV SCH (05:57)
--- NOTE | 2021-12-11 06:16 | NUR ---
Pt slept intermittently. Pt in no acute distress. Pt is on controlled afib. Pt on 1l nasal cannula. Pt is removing her oxygen. Constant monitoring needed. Prescribed medication given and pt tolerated it well. Safety and comfort provided. All needs are met. Pt turned and repositioned. Will endorse to incoming nurse for continuity of care.
[2021-12-11] MEDS: PANTOPRAZOLE SODIUM 40 MG TABLET.DR PO SCH (06:27)
[2021-12-11] MEDS: BLOOD SUGAR DIAGNOSTIC 1 EACH STRIP VI SCH ×4 (06:30→20:41)
[2021-12-11 06:46] LABS: HEMATOCRIT 41.3 % (31.2-41.9); MEAN CORPUSCULAR HEMOGLOBIN 29.1 uug (24.7-32.8); MEAN CORPUSCULAR VOLUME 92.4 fL (75.5-95.3); PLATELET COUNT (AUTO) 80 K/uL (179-408)
[2021-12-11 07:04] LABS: CREATININE 1.2 mg/dL (0.6-1.3); MAGNESIUM 2.4 mg/dL (1.8-2.4); PHOSPHOROUS 3.5 mg/dL (2.5-4.9); POTASSIUM 4.2 mmol/L (3.5-5.1)
[2021-12-11 07:40] LABS: BAND % (MANUAL) 1 % (0-10); LYMPHOCYTES % (MANUAL) 10 % (20-40); MONOCYTES % (MANUAL) 4 % (2-10); NEUTROPHILS % (MANUAL) 85 % (42-75)
[2021-12-11] MEDS: INSULIN REGULAR, HUMAN 300 UNIT/3 ML VIAL SQ PRN ×4 (08:49→20:41)
[2021-12-11] MEDS: THERAHONEY GEL 1.5 OZ TUBE TOP SCH (08:50)
[2021-12-11] MEDS: REMEDY ESSENTIAL ZINC PASTE 113 GM TOP SCH ×2 (08:50→20:45)
[2021-12-11] MEDS: INSULIN GLARGINE,HUM 300 UNITS/3 ML CARTRIDGE SQ SCH ×2 (08:50→20:42)
[2021-12-11] MEDS: CLOTRIMAZOLE/BETAMET DIPROP CREAM 15 GM TUBE TOP SCH ×2 (08:51→20:47)
[2021-12-11] MEDS: methylPREDNISolone SOD SUCC 40 MG/ML VIAL IV SCH ×2 (08:55→20:40)
[2021-12-11] MEDS: FUROSEMIDE 40 MG/4 ML VIAL IV SCH ×2 (08:55→20:40)
[2021-12-11] MEDS: SPIRONOLACTONE 25 MG TABLET PO SCH (08:55)
[2021-12-11] MEDS: CARVEDILOL 25 MG TABLET PO SCH ×2 (08:57→17:03)
[2021-12-11] MEDS: APIXABAN 5 MG TABLET PO SCH ×2 (08:59→20:40)
[2021-12-11 09:00] VITALS: BP 123/78
[2021-12-11 10:35] LABS: ABG BASE EXCESS 4.8 mmol/L; ABG HCO3 31.4 mmol/L; ABG PCO2 54.7 mmHg (35.0-45.0); ABG PH 7.377 (7.350-7.450); ABG PO2 51.7 mmHg (75.0-100.0); ABG SITE RIGHT RADIAL; COHb 1.4 % (0.5-1.5); MetHb 0.1 % (0.0-1.5); O2Hb 84.7 % (94.0-97.0)
--- NOTE | 2021-12-11 10:54 | NUR ---
patient is more confuse than usual, restless, and lethargic, examined by dr Washburn at bedside, patient is currently on room air, saturating at above 90s, per dr Gautam recommendations keep patient between 88-90s. dr petersen is aware and ordered ABGs stat, ABGs results results are reviewed by dr petersen, ordered CT of head. continue to monitor
[2021-12-11 11:06] VITALS: BP 125/75
[2021-12-11] MEDS: DAPTOMYCIN 500 MG in IV NORMAL SALINE 50 ML IV SCH (13:53)
[2021-12-11 16:00] VITALS: BP 114/69
[2021-12-11] MEDS: GENTAMICIN SULFATE 0.1% CREAM 15 GM TUBE TOP SCH (16:58)
--- NOTE | 2021-12-11 19:00 | NUR ---
patient slept intermittently during shift, awake at times, responses to verbal stimuli, saturates between 88-90% at room air, per Dr Gautam recommendations, restlessness, anxiety and episodes of hyperventilation, monitored closely. endorsed to next shift accordingly.
[2021-12-11 20:04] VITALS: BP 108/73
[2021-12-11] MEDS: LEVALBUTEROL HCL NEB 0.63 MG/3 ML NEBU NEB PRN (20:18)
[2021-12-11] MEDS: DOCUSATE SODIUM 100 MG CAPSULE PO SCH (20:40)
[2021-12-12 00:54] VITALS: BP 105/71
[2021-12-12] MEDS: LEVALBUTEROL HCL NEB 0.63 MG/3 ML NEBU NEB PRN (02:07)
[2021-12-12 04:00] VITALS: BP 113/81
[2021-12-12] MEDS: ACIDOPHILUS/BULGARICUS CHEW TAB PO SCH ×3 (05:11→21:19)
[2021-12-12] MEDS: PANTOPRAZOLE SODIUM 40 MG TABLET.DR PO SCH (06:07)
[2021-12-12] MEDS: BLOOD SUGAR DIAGNOSTIC 1 EACH STRIP VI SCH ×4 (06:32→21:09)
--- NOTE | 2021-12-12 06:35 | NUR ---
Patient AOx2-3. Mainly sleeps intermittently. Arouse to verbal and tactile stimuli. Still with periods of hyperventilation and apnea lasting 5-10 seconds. A. fib on tele with HR of 96/min.Unable to keep CIPAP in place. Patient removes CIPAP. No signs of pain. O2 at 1LPM via NC in place. O2 sat fluctuates between 87-97%. Funes catheter intact and draining via gravity. Needs assessed and attended to. Safety measure maintained.
[2021-12-12 07:08] LABS: HEMATOCRIT 40.3 % (31.2-41.9); MEAN CORPUSCULAR HEMOGLOBIN 29.1 uug (24.7-32.8); MEAN CORPUSCULAR VOLUME 90.5 fL (75.5-95.3); PLATELET COUNT (AUTO) 168 K/uL (179-408)
[2021-12-12 07:33] LABS: BILIRUBIN,DIRECT 0.6 mg/dL (0.0-0.2); BILIRUBIN,TOTAL 1.2 mg/dL (0.2-1.0); CREATININE 1.5 mg/dL (0.6-1.3); MAGNESIUM 2.6 mg/dL (1.8-2.4); PHOSPHOROUS 4.4 mg/dL (2.5-4.9); POTASSIUM 3.9 mmol/L (3.5-5.1); TOTAL PROTEIN, SERUM 6.2 g/dL (6.4-8.2)
[2021-12-12 07:55] LABS: ABG BASE EXCESS 3.4 mmol/L; ABG HCO3 31.6 mmol/L; ABG PCO2 64.4 mmHg (35.0-45.0); ABG PH 7.308 (7.350-7.450); ABG PO2 74.6 mmHg (75.0-100.0); ABG SITE LEFT RADIAL; ABG TOTAL HEMOGLOBIN 13.8 G/dL (12.0-16.0); COHb 1.5 % (0.5-1.5); MetHb 0.2 % (0.0-1.5); O2Hb 92.4 % (94.0-97.0); VENT MODE Nasal Cannula
--- NOTE | 2021-12-12 08:00 | NUR ---
AWAKE ALERT AND VERBALLY RESPONSIVE ON 1L NC SATURATING 89-92%, NOTED WITH ON AND OFF AGITATION. CLOSELY MONITORED
[2021-12-12] MEDS ORDERED: ACETAzolamide 250 MG TABLET PO ONE (08:15)
[2021-12-12] MEDS: methylPREDNISolone SOD SUCC 40 MG/ML VIAL IV SCH ×2 (08:54→21:10)
[2021-12-12] MEDS: APIXABAN 5 MG TABLET PO SCH ×2 (08:55→21:14)
[2021-12-12] MEDS: CARVEDILOL 25 MG TABLET PO SCH ×2 (08:56→17:14)
[2021-12-12] MEDS: SPIRONOLACTONE 25 MG TABLET PO SCH (08:57)
[2021-12-12] MEDS: INSULIN REGULAR, HUMAN 300 UNIT/3 ML VIAL SQ PRN ×4 (08:58→21:20)
[2021-12-12] MEDS: GENTAMICIN SULFATE 0.1% CREAM 15 GM TUBE TOP SCH ×2 (09:05→17:14)
[2021-12-12] MEDS: FUROSEMIDE 40 MG TABLET PO SCH (09:05)
[2021-12-12] MEDS: LACTULOSE 20 G/30 ML LIQUID UDC PO SCH ×2 (09:05→21:13)
[2021-12-12] MEDS: THERAHONEY GEL 1.5 OZ TUBE TOP SCH (09:06)
[2021-12-12] MEDS: CLOTRIMAZOLE/BETAMET DIPROP CREAM 15 GM TUBE TOP SCH ×2 (09:06→21:17)
[2021-12-12] MEDS: REMEDY ESSENTIAL ZINC PASTE 113 GM TOP SCH ×2 (09:06→21:17)
[2021-12-12] MEDS ORDERED: ACETAzolamide SODIUM 500 MG VIAL IV ONE (09:45)
[2021-12-12] MEDS: POTASSIUM CHLORIDE 50 ML IV SCH ×2 (09:58→10:39)
[2021-12-12] MEDS ORDERED: ALBUTEROL SULFATE 1.25 MG/3 ML NEBU NEB PRN (10:45)
--- NOTE | 2021-12-12 11:00 | NUR ---
SEEN BY HOSPITALIST AND RAILROAD PASSENGER AGENT FOR FOLLOW-UP SEE NOTES
[2021-12-12 12:00] VITALS: BP 116/72
--- NOTE | 2021-12-12 12:00 | NUR ---
NO ACUTE CHANGE FROM MORNING ASSESSMENT
[2021-12-12] MEDS: DAPTOMYCIN 500 MG in IV NORMAL SALINE 50 ML IV SCH (14:17)
--- NOTE | 2021-12-12 15:23 | NUR ---
NO ACUTE CHANGE FROM MORNING ASSESSMENT, 02 1L VIA NC SATURATING 93%. REMAINS CONTROLLED AFIB ON MONITOR
[2021-12-12 16:00] VITALS: BP 120/64
[2021-12-12 19:58] LABS: *BILIRUBIN,URIN NEGATIVE (NEGATIVE); *BLOOD, URINE 3+ (NEGATIVE); *CLARITY,URINE CLOUDY (CLEAR); *COLOR,URINE Orange (YELLOW); *KETONES,URINE NEGATIVE (NEGATIVE); LEUKOCYTE ESTERASE ,URINE NEGATIVE (NEGATIVE); NITRITE, URINE NEGATIVE (NEGATIVE); PH,URINE 5.5 (5.0-8.0); UGLUCOSE NEGATIVE (NEGATIVE)
[2021-12-12 20:00] VITALS: BP 101/63
--- NOTE | 2021-12-12 20:20 | NUR ---
Received patient in bed, sleeping. Aroused by name and often times by deep touch. Appears groggy and lethargic. On 1L O2, saturating at 96%. A. Fib, controlled with HR of 93bpm on telemonitor. IV access on NANO ML, TKO. Safety precautions initiated. Will continue to monitor. Addendum: 12/13/21 at 0105 by VERONICA SNYDER RN IV access on NANO PICC Line.
[2021-12-12] MEDS: DOCUSATE SODIUM 100 MG CAPSULE PO SCH (21:13)
[2021-12-12] MEDS: INSULIN GLARGINE,HUM 300 UNITS/3 ML CARTRIDGE SQ SCH (21:15)
[2021-12-12 22:41] LABS: BACTERIA,URINE NONE SEEN /HPF (NONE SEEN); RBC,URINE TNTC /HPF (0-3); SQUAMOUS EPITHELIAL CELL,UR FEW /HPF (NONE SEEN); WBC,URINE NONE SEEN /HPF (0-3)
[2021-12-13] VITALS (8 sets, daily range): BP systolic 102–120; BP diastolic 55–76
[2021-12-13] MEDS: ACIDOPHILUS/BULGARICUS CHEW TAB PO SCH ×3 (06:00→21:16)
[2021-12-13] MEDS: PANTOPRAZOLE SODIUM 40 MG TABLET.DR PO SCH (06:09)
[2021-12-13] MEDS: BLOOD SUGAR DIAGNOSTIC 1 EACH STRIP VI SCH ×4 (06:38→21:00)
--- NOTE | 2021-12-13 06:39 | NUR ---
Patient noted to be lethargic. Unable to obey commands, unable to take in medications. electro mechanical technologist noted SVT with wide QRS complexes. Vital signs were taken, 122/60mmhg with HR of 85bpm and O2 sat of 93%. APPRAISAL MANAGER institutional custodian was notified.
[2021-12-13 06:43] LABS: HEMATOCRIT 40.7 % (31.2-41.9); MEAN CORPUSCULAR HEMOGLOBIN 29.5 uug (24.7-32.8); MEAN CORPUSCULAR VOLUME 90.8 fL (75.5-95.3); PLATELET COUNT (AUTO) 166 K/uL (179-408)
[2021-12-13 07:02] LABS: CREATININE 1.3 mg/dL (0.6-1.3); MAGNESIUM 2.6 mg/dL (1.8-2.4); PHOSPHOROUS 3.6 mg/dL (2.5-4.9); POTASSIUM 3.9 mmol/L (3.5-5.1)
--- NOTE | 2021-12-13 08:00 | NUR ---
RECEIVED PATIENT IN BED WITH EYES CLOSED OPENS EYES WHEN TOUCHED BUT PROMPTLY CLOSES EYES NON VERBAL ALL NEEDS ANTICIPATED AND SATISFIED DR PERALTA HERE AND AWARE THAT PATIENT HAD AN EPISODE OF V TACH STATED WILL SEE PATIENT HAS EDEMA OF BILATERAL UPPER AND LOWER EXTREMITIES ELEVATED ON THE PILLOW.CHAVEZ CATH WITH NELSON COLORED URINE. ON O2 AT IL/M BY NASAL CANULA WITH SATS AT 95-96 PERCENT AT THIS TIME LEFT UPPER ARM MIDLINE TRIPLE LUMEN IS INTACT GENERAL CONDITION IS POOR WILL CONTINUE TO OBSERVE.
[2021-12-13] MEDS: INSULIN REGULAR, HUMAN 300 UNIT/3 ML VIAL SQ PRN ×2 (08:09→17:24)
[2021-12-13] MEDS ORDERED: LACTULOSE 20 G/30 ML LIQUID UDC PO SCH (09:15)
[2021-12-13] MEDS: methylPREDNISolone SOD SUCC 40 MG/ML VIAL IV SCH ×2 (09:23→21:02)
[2021-12-13] MEDS: THERAHONEY GEL 1.5 OZ TUBE TOP SCH (09:24)
[2021-12-13] MEDS: REMEDY ESSENTIAL ZINC PASTE 113 GM TOP SCH ×2 (09:24→21:00)
[2021-12-13] MEDS: GENTAMICIN SULFATE 0.1% CREAM 15 GM TUBE TOP SCH ×2 (09:25→17:22)
[2021-12-13] MEDS: FUROSEMIDE 40 MG TABLET PO SCH (09:25)
[2021-12-13] MEDS: CLOTRIMAZOLE/BETAMET DIPROP CREAM 15 GM TUBE TOP SCH ×2 (09:25→21:30)
[2021-12-13] MEDS: SPIRONOLACTONE 25 MG TABLET PO SCH (09:25)
[2021-12-13] MEDS: APIXABAN 5 MG TABLET PO SCH ×2 (09:32→21:00)
[2021-12-13] MEDS: CARVEDILOL 25 MG TABLET PO SCH ×2 (09:36→18:00)
[2021-12-13] MEDS ORDERED: ACETAzolamide SODIUM 500 MG VIAL IV ONE (10:00)
--- NOTE | 2021-12-13 13:23 | NUR ---
NOTED HAVING SOME LABORED BREATHING NOTIFIED RESPIRATORY AND BREATHING TREATMENT GIVEN ORDERED WILL CONTINUE TO OBSERVE.
[2021-12-13] MEDS: DAPTOMYCIN 500 MG in IV NORMAL SALINE 50 ML IV SCH (13:52)
[2021-12-13] MEDS: LACTULOSE 20 G/30 ML LIQUID UDC PO SCH ×2 (14:04→21:16)
[2021-12-13 15:47] LABS: ABG BASE EXCESS 6.6 mmol/L; ABG HCO3 37.3 mmol/L; ABG PCO2 88.1 mmHg (35.0-45.0); ABG PH 7.245 (7.350-7.450); ABG SITE RIGHT RADIAL; COHb 1.4 % (0.5-1.5); MetHb 0.1 % (0.0-1.5); O2Hb 93.6 % (94.0-97.0); VENT MODE Nasal Cannula
--- NOTE | 2021-12-13 15:55 | NUR ---
CALL RECEIVED FROM DR RICHTER STATED TO TRANSFER PATIENT TO ICU FOR CONTINUING CARE ABG RESULTS ARE ABNORMAL FINANCIAL SERVICES INTERN NOTIFIED WILL TRANSFER DEBBIE
--- NOTE | 2021-12-13 16:30 | NUR ---
DR MAGANA HERE AND AWARE THAT PATIENT WILL BE TRANSFERED TO ICU PER DR TREVIZO AND HE SPOKE WITH PATIENTS FAMILY AT LENGTH HER AND HER BROTHER PATIENT TRANSFERED TO ICU BED 3 AT THIS TIME WITH BIPAP PER DR MATAMOROS ORDER PATIENT IS LETHARGIC AT THIS TIME AND IS TOLERATING THE BIPAP ORDERED.PATIENTS TOOK HER CELL PHONE HOME.
--- NOTE | 2021-12-13 16:33 | NUR ---
pt received in ICU, lethargic, obtunded. pt brought down from tele unit to be put on bipap. per Peleg, ABG reading waranted for pt to be ICU status pCO2 88.1, pH 7.2, pO280, and HCO 337.3. pt transferred to ICU bed 3 on bipap, I:E 20:10, rate 14, O2 24%. pt A fib, per tele nurse pt has been refusing to eat and would not keep bipap on. pt voiding via pack cath, IV access on the left UA PICC, no fluids running. Pt ammonia level 95, was given lactulose on tele unit, pt was still refusing to take it. pt saturating at 93%, HR 90, resp 26, BP 108/63. will continue to monitor.
--- NOTE | 2021-12-13 17:10 | NUR ---
pt family at bedside
--- NOTE | 2021-12-13 17:10 | NUR ---
PT PLACED ON BIPAP POST CRITICAL ABG RESULTS, PER ORDER. PT TRANSPORTED TO CCU WITHOUT INCIDENT. PT REMAINS ON BIPAP ATC AT THIS TIME. PT IS LETHARGIC, MINIMALLY AROUSES WITH STIMULI. SPO2 AND RESPIRATIONS WNL. WILL CONTINUE TO MONITOR AND FOLLOW RESPIRATORY TREATMENTS ORDERED.
[2021-12-13 18:16] LABS: ABG BASE EXCESS 4.3 mmol/L; ABG HCO3 32.8 mmol/L; ABG PCO2 68.1 mmHg (35.0-45.0); ABG PO2 74.2 mmHg (75.0-100.0); ABG SITE RIGHT RADIAL; ABG TOTAL HEMOGLOBIN 13.1 G/dL (12.0-16.0); COHb 1.4 % (0.5-1.5); MetHb 0.2 % (0.0-1.5); VENT MODE BIPAP
--- NOTE | 2021-12-13 18:16 | NUR ---
call placed through pulmonology hotline to [facility], engine lathe operator stated that Anwar was oncall, new ABG results were given pH7.30, pCO2 68.1, PO2 74.2, HCO3 32.8. per Anwar orders are to keep settings just the way they are.
--- NOTE | 2021-12-13 20:35 | NUR ---
Dr Terrell called and updated with patients condition, VS, Bi-pap, unable to insert NGT due to pt on Bi-pap, ordered to hold all po medications including lantus and willl reassess pt in am. Lactulose ordered per rectum
[2021-12-13] MEDS: INSULIN GLARGINE,HUM 300 UNITS/3 ML CARTRIDGE SQ SCH (21:00)
[2021-12-13] MEDS: DOCUSATE SODIUM 100 MG CAPSULE PO SCH (21:00)
[2021-12-13] MEDS ORDERED: LACTULOSE 20 G/30 ML LIQUID UDC PR ONE (21:00)
[2021-12-14] VITALS (24 sets, daily range): BP systolic 105–163; BP diastolic 55–95
--- NOTE | 2021-12-14 00:41 | NUR ---
PATIENT HAS BEEN ON CONT BI/PAP WITH FULL LARGE MASK, WITH SETTINGS, 20/10, R14 , FIO2 @ 24% PT VERY LATHARGIC, BREATHS SHALLOW , ABG AT 0800.Malcolm DIORP Addendum: 12/14/21 at 0045 by JOSÉ MIGUEL DESIR RT Amended: Links added.
[2021-12-14] MEDS: LACTULOSE 20 G/30 ML LIQUID UDC PO SCH ×4 (05:19→21:19)
[2021-12-14] MEDS: ACIDOPHILUS/BULGARICUS CHEW TAB PO SCH ×3 (05:20→21:19)
[2021-12-14 05:42] LABS: HEMATOCRIT 38.9 % (31.2-41.9); MEAN CORPUSCULAR HEMOGLOBIN 29.3 uug (24.7-32.8); MEAN CORPUSCULAR VOLUME 91.3 fL (75.5-95.3); PLATELET COUNT (AUTO) 161 K/uL (179-408)
[2021-12-14 05:49] LABS: BILIRUBIN,TOTAL 0.9 mg/dL (0.2-1.0); CREATININE 1.1 mg/dL (0.6-1.3); MAGNESIUM 2.4 mg/dL (1.8-2.4); PHOSPHOROUS 2.8 mg/dL (2.5-4.9); POTASSIUM 3.7 mmol/L (3.5-5.1); TOTAL PROTEIN, SERUM 5.5 g/dL (6.4-8.2)
[2021-12-14] MEDS: PANTOPRAZOLE SODIUM 40 MG TABLET.DR PO SCH (06:14)
[2021-12-14] MEDS: BLOOD SUGAR DIAGNOSTIC 1 EACH STRIP VI SCH ×4 (06:50→20:41)
[2021-12-14] MEDS: CARVEDILOL 25 MG TABLET PO SCH ×2 (08:00→17:21)
[2021-12-14] MEDS: SPIRONOLACTONE 25 MG TABLET PO SCH (08:02)
[2021-12-14] MEDS: APIXABAN 5 MG TABLET PO SCH ×2 (08:02→20:27)
[2021-12-14] MEDS: GENTAMICIN SULFATE 0.1% CREAM 15 GM TUBE TOP SCH ×2 (08:11→16:33)
[2021-12-14] MEDS: methylPREDNISolone SOD SUCC 40 MG/ML VIAL IV SCH ×2 (08:11→20:26)
[2021-12-14] MEDS: THERAHONEY GEL 1.5 OZ TUBE TOP SCH (08:12)
[2021-12-14] MEDS: CLOTRIMAZOLE/BETAMET DIPROP CREAM 15 GM TUBE TOP SCH ×2 (08:12→20:28)
[2021-12-14] MEDS: REMEDY ESSENTIAL ZINC PASTE 113 GM TOP SCH ×2 (08:13→20:27)
[2021-12-14 08:42] LABS: ABG BASE EXCESS 6.2 mmol/L; ABG HCO3 33.2 mmol/L; ABG PCO2 58.7 mmHg (35.0-45.0); ABG PO2 78.8 mmHg (75.0-100.0); ABG SITE RIGHT RADIAL; COHb 1.3 % (0.5-1.5); O2Hb 94.8 % (94.0-97.0); VENT MODE BIPAP
[2021-12-14] MEDS ORDERED: FUROSEMIDE 40 MG/4 ML VIAL IV SCH (09:00)
--- NOTE | 2021-12-14 09:36 | NUR ---
Dr [email or web address].
--- NOTE | 2021-12-14 10:23 | NUR ---
PATIENT RECEIVED ON CONT BI/PAP WITH FULL LARGE MASK, WITH SETTINGS, 20/10, R14 , @24% FIO2.
--- NOTE | 2021-12-14 11:10 | NUR ---
1104am: Patient is now more awake and alert, talking to staff and visitors appropriately.
--- NOTE | 2021-12-14 11:15 | NUR ---
PT IS NOW AWAKE AND TALKING. BIPAP REMOVED. PT PLACED ON 1 LPM 02 VIA N/C. PT VANDANA WELL. DR AWARE. ABG TO BE DONE @1330.
--- NOTE | 2021-12-14 11:25 | NUR ---
Dr [email or web address]
[2021-12-14] MEDS: INSULIN REGULAR, HUMAN 300 UNIT/3 ML VIAL SQ PRN ×3 (12:15→21:46)
[2021-12-14] MEDS: AMOXIcillin 500 MG CAPSULE PO SCH ×2 (13:40→16:33)
[2021-12-14 14:12] LABS: ABG BASE EXCESS 7.7 mmol/L; ABG HCO3 35.2 mmol/L; ABG PCO2 62.7 mmHg (35.0-45.0); ABG PH 7.367 (7.350-7.450); ABG PO2 85.3 mmHg (75.0-100.0); ABG SITE RIGHT RADIAL; ABG TOTAL HEMOGLOBIN 13.3 G/dL (12.0-16.0); COHb 1.2 % (0.5-1.5); MetHb 0.2 % (0.0-1.5); O2Hb 94.8 % (94.0-97.0); VENT MODE Nasal Cannula
[2021-12-14] MEDS: FUROSEMIDE 40 MG/4 ML VIAL IV SCH (16:33)
--- NOTE | 2021-12-14 17:42 | NUR ---
Patient had one BM earlier. Complete bed bath and vladimir-anal care done. Patient is attempting to do BM again now. Patient passed flatus twice, no BM seen since 1730pm today.
[2021-12-14] MEDS: DOCUSATE SODIUM 100 MG CAPSULE PO SCH (20:26)
[2021-12-14] MEDS: INSULIN GLARGINE,HUM 300 UNITS/3 ML CARTRIDGE SQ SCH (20:39)
--- NOTE | 2021-12-14 23:39 | NUR ---
PT BEEN ON O2 @ 1L/M NC, SEMI AWAKE, TALKING TO HERSELF, NO SOB NOTED ,NO NEED FOR BI/PAP AT THIS TIME, Princess BARRIOS NOTIFIED, PT OK , SAT 97%, WILL MONITOR , NURSE AWARE PT ON 1L/M NC . Malcolm DIORP Addendum: 12/14/21 at 2341 by JOSÉ MIGUEL DESIR RT Amended: Links added.
[2021-12-15] VITALS (12 sets, daily range): BP systolic 119–148; BP diastolic 67–85
[2021-12-15] MEDS: LACTULOSE 20 G/30 ML LIQUID UDC PO SCH ×3 (05:06→22:02)
[2021-12-15] MEDS: ACIDOPHILUS/BULGARICUS CHEW TAB PO SCH ×3 (05:06→22:02)
[2021-12-15 05:15] LABS: HEMATOCRIT 37.2 % (31.2-41.9); MEAN CORPUSCULAR HEMOGLOBIN 29.1 uug (24.7-32.8); MEAN CORPUSCULAR VOLUME 89.9 fL (75.5-95.3); PLATELET COUNT (AUTO) 143 K/uL (179-408)
[2021-12-15 05:27] LABS: CREATININE 1.1 mg/dL (0.6-1.3); MAGNESIUM 2.4 mg/dL (1.8-2.4); PHOSPHOROUS 2.4 mg/dL (2.5-4.9); POTASSIUM 3.6 mmol/L (3.5-5.1)
[2021-12-15] MEDS: PANTOPRAZOLE SODIUM 40 MG TABLET.DR PO SCH (06:14)
[2021-12-15] MEDS: BLOOD SUGAR DIAGNOSTIC 1 EACH STRIP VI SCH ×4 (06:42→21:00)
--- NOTE | 2021-12-15 07:28 | NUR ---
Uneventful night, AAOX3. VSS. Afib controlled 70-90's. Labs reviewed. Bedside report given to [place] MCGARRY.
[2021-12-15] MEDS: CARVEDILOL 25 MG TABLET PO SCH ×2 (08:15→18:20)
[2021-12-15] MEDS: FUROSEMIDE 40 MG/4 ML VIAL IV SCH ×2 (08:16→17:45)
[2021-12-15] MEDS: AMOXIcillin 500 MG CAPSULE PO SCH ×3 (08:16→18:20)
[2021-12-15] MEDS: SPIRONOLACTONE 25 MG TABLET PO SCH (08:16)
[2021-12-15] MEDS: methylPREDNISolone SOD SUCC 40 MG/ML VIAL IV SCH ×2 (08:16→22:02)
[2021-12-15] MEDS: INSULIN REGULAR, HUMAN 300 UNIT/3 ML VIAL SQ PRN ×4 (08:17→22:15)
[2021-12-15] MEDS: APIXABAN 5 MG TABLET PO SCH ×2 (08:24→22:03)
[2021-12-15] MEDS ORDERED: POTASSIUM CHLORIDE 20 MEQ POWDER PACKET PO ONE (08:45)
[2021-12-15 08:52] LABS: ABG BASE EXCESS 8.1 mmol/L; ABG HCO3 36.1 mmol/L; ABG PCO2 67.2 mmHg (35.0-45.0); ABG PH 7.348 (7.350-7.450); ABG SITE RIGHT RADIAL; ABG TOTAL HEMOGLOBIN 12.9 G/dL (12.0-16.0); MetHb 0.1 % (0.0-1.5); O2Hb 95.7 % (94.0-97.0); VENT MODE Nasal Cannula
[2021-12-15] MEDS ORDERED: POTASSIUM CHLORIDE 20 MEQ TAB.PRT.SR PO ONE (09:00)
[2021-12-15] MEDS: CLOTRIMAZOLE/BETAMET DIPROP CREAM 15 GM TUBE TOP SCH ×2 (09:39→22:22)
[2021-12-15] MEDS: GENTAMICIN SULFATE 0.1% CREAM 15 GM TUBE TOP SCH ×2 (09:39→18:29)
[2021-12-15] MEDS: THERAHONEY GEL 1.5 OZ TUBE TOP SCH (09:40)
[2021-12-15] MEDS: REMEDY ESSENTIAL ZINC PASTE 113 GM TOP SCH ×2 (09:40→22:21)
[2021-12-15] MEDS ORDERED: POTASSIUM PHOSPHATE MM 7.5 MMOL in IV NORMAL SALINE 97.5 ML IV ONE (10:00)
--- NOTE | 2021-12-15 16:00 | NUR ---
Patient placed on BiPap due to increased lethargy and shortness of breath.
--- NOTE | 2021-12-15 18:00 | NUR ---
Patient taken off BiPap.
[2021-12-15] MEDS: INSULIN GLARGINE,HUM 300 UNITS/3 ML CARTRIDGE SQ SCH (22:04)
[2021-12-15] MEDS: DOCUSATE SODIUM 100 MG CAPSULE PO SCH (22:05)
[2021-12-16] VITALS (9 sets, daily range): BP systolic 99–147; BP diastolic 58–89
[2021-12-16 05:22] LABS: HEMATOCRIT 37.4 % (31.2-41.9); MEAN CORPUSCULAR HEMOGLOBIN 29.2 uug (24.7-32.8); MEAN CORPUSCULAR VOLUME 90.8 fL (75.5-95.3); PLATELET COUNT (AUTO) 112 K/uL (179-408)
[2021-12-16 05:25] LABS: MAGNESIUM 2.1 mg/dL (1.8-2.4); POTASSIUM 4.1 mmol/L (3.5-5.1)
[2021-12-16] MEDS: ACIDOPHILUS/BULGARICUS CHEW TAB PO SCH ×3 (05:42→22:25)
[2021-12-16] MEDS: LACTULOSE 20 G/30 ML LIQUID UDC PO SCH ×3 (05:43→22:25)
[2021-12-16 06:16] LABS: ABG BASE EXCESS 10.9 mmol/L; ABG HCO3 38.5 mmol/L; ABG PCO2 65.9 mmHg (35.0-45.0); ABG PH 7.385 (7.350-7.450); ABG PO2 88.1 mmHg (75.0-100.0); ABG SITE RIGHT RADIAL; ABG TOTAL HEMOGLOBIN 13.2 G/dL (12.0-16.0); MetHb 0.2 % (0.0-1.5); O2Hb 95.9 % (94.0-97.0); VENT MODE Nasal Cannula
[2021-12-16] MEDS: PANTOPRAZOLE SODIUM 40 MG TABLET.DR PO SCH (07:23)
[2021-12-16] MEDS: BLOOD SUGAR DIAGNOSTIC 1 EACH STRIP VI SCH ×4 (07:28→20:29)
[2021-12-16] MEDS: INSULIN REGULAR, HUMAN 300 UNIT/3 ML VIAL SQ PRN ×4 (07:51→20:31)
[2021-12-16] MEDS: methylPREDNISolone SOD SUCC 40 MG/ML VIAL IV SCH ×2 (08:28→20:19)
[2021-12-16] MEDS: FUROSEMIDE 40 MG/4 ML VIAL IV SCH ×2 (08:28→17:37)
[2021-12-16] MEDS: SPIRONOLACTONE 25 MG TABLET PO SCH (08:29)
[2021-12-16] MEDS: CARVEDILOL 25 MG TABLET PO SCH ×2 (08:29→18:28)
[2021-12-16] MEDS: APIXABAN 5 MG TABLET PO SCH ×2 (08:29→20:20)
[2021-12-16] MEDS: THERAHONEY GEL 1.5 OZ TUBE TOP SCH (08:46)
[2021-12-16] MEDS: GENTAMICIN SULFATE 0.1% CREAM 15 GM TUBE TOP SCH ×2 (08:46→17:01)
[2021-12-16] MEDS: REMEDY ESSENTIAL ZINC PASTE 113 GM TOP SCH ×2 (08:46→20:17)
[2021-12-16] MEDS: CLOTRIMAZOLE/BETAMET DIPROP CREAM 15 GM TUBE TOP SCH ×2 (08:46→20:17)
[2021-12-16] MEDS ORDERED: NEUTRA PHOS PACKET PO ONE (16:00)
[2021-12-16] MEDS: GLUCERNA SHAKE 237 ML CAN PO SCH (17:01)
[2021-12-16] MEDS ORDERED: DILTIAZEM HCL IV 125 MG in IV NORMAL SALINE 100 ML IV PRN ×2 (19:15→19:30)
--- NOTE | 2021-12-16 19:17 | NUR ---
Notified Dr. Johnson of EKG results as A. fib with RVR. Received order for diltiazem drip. Bolus patient with 10mg, and start at 10mg/hr and titrate every 15 minutes by 5mg/hr to max of 15mg/hr to keep the heart rate less than 110.
[2021-12-16] MEDS ORDERED: DILTIAZEM HCL 25 MG IV IV ONE (20:15)
[2021-12-16] MEDS: DOCUSATE SODIUM 100 MG CAPSULE PO SCH (20:19)
[2021-12-16] MEDS: INSULIN GLARGINE,HUM 300 UNITS/3 ML CARTRIDGE SQ SCH (20:29)
[2021-12-17] VITALS (21 sets, daily range): BP systolic 107–151; BP diastolic 29–102
[2021-12-17 05:32] LABS: CREATININE 0.9 mg/dL (0.6-1.3); MAGNESIUM 2.2 mg/dL (1.8-2.4); PHOSPHOROUS 2.3 mg/dL (2.5-4.9)
--- NOTE | 2021-12-17 05:35 | NUR ---
Pt remains bed bound. She was changed from Tele status to ICU status at the start of the shift when Dr. Johnson ordered a cardizem gtt due to the patient's tachycardia. Pt received 10mg cardizem bolus as a loading dose and then the pt was placed on 10mg/hr. Gtt was held for about 2 hours after the pt's heart rate dropped to 45. Gtt was restarted at 5mg/hr subsequently. Pt was able to dangle at the edge of the bed and should be encouraged to do so since she verbalized that she felt better after dangling at the edge of the bed.
[2021-12-17 05:42] LABS: HEMATOCRIT 36.9 % (31.2-41.9); MEAN CORPUSCULAR HEMOGLOBIN 29.1 uug (24.7-32.8); MEAN CORPUSCULAR VOLUME 90.1 fL (75.5-95.3); PLATELET COUNT (AUTO) 123 K/uL (179-408)
[2021-12-17] MEDS: LACTULOSE 20 G/30 ML LIQUID UDC PO SCH ×3 (06:50→21:09)
[2021-12-17] MEDS: ACIDOPHILUS/BULGARICUS CHEW TAB PO SCH ×3 (06:51→21:11)
[2021-12-17] MEDS: PANTOPRAZOLE SODIUM 40 MG TABLET.DR PO SCH (06:52)
--- NOTE | 2021-12-17 08:00 | NUR ---
Received patient awake alert and oriented x 3. Denies pain or SOB. On O2 0.5L NC. Tele Afib controlled. intermediate assessment done, pulses are strong upon palpitation. Pt c/o of constipation. Funes care provided, draining clear and yellow urine. Bilateral lower ext wrapped in sha wrap. Safety initiated. Call light within reach.
[2021-12-17] MEDS: BLOOD SUGAR DIAGNOSTIC 1 EACH STRIP VI SCH ×4 (08:24→21:21)
[2021-12-17] MEDS: CARVEDILOL 25 MG TABLET PO SCH ×2 (08:24→18:18)
--- NOTE | 2021-12-17 09:05 | NUR ---
Social Staff Worker at bedside. New orders to stop Cardizem drip. Will closely monitor.
[2021-12-17] MEDS ORDERED: CARVEDILOL 12.5 MG TABLET PO ONE (09:30)
--- NOTE | 2021-12-17 09:57 | NUR ---
OT and PT working with pt. Will closely monitor.
[2021-12-17] MEDS: FUROSEMIDE 40 MG/4 ML VIAL IV SCH ×2 (10:13→16:17)
[2021-12-17] MEDS: APIXABAN 5 MG TABLET PO SCH ×2 (10:13→21:11)
[2021-12-17] MEDS: SPIRONOLACTONE 25 MG TABLET PO SCH (10:13)
[2021-12-17] MEDS: THERAHONEY GEL 1.5 OZ TUBE TOP SCH (10:14)
[2021-12-17] MEDS: REMEDY ESSENTIAL ZINC PASTE 113 GM TOP SCH ×2 (10:15→21:19)
[2021-12-17] MEDS: GLUCERNA SHAKE 237 ML CAN PO SCH ×2 (10:15→17:06)
[2021-12-17] MEDS: CLOTRIMAZOLE/BETAMET DIPROP CREAM 15 GM TUBE TOP SCH ×2 (10:15→21:21)
[2021-12-17] MEDS: GENTAMICIN SULFATE 0.1% CREAM 15 GM TUBE TOP SCH ×2 (10:16→17:06)
[2021-12-17] MEDS: INSULIN REGULAR, HUMAN 300 UNIT/3 ML VIAL SQ PRN ×4 (10:17→21:23)
[2021-12-17] MEDS ORDERED: NEUTRA PHOS PACKET PO ONE (10:45)
[2021-12-17] MEDS: methylPREDNISolone SOD SUCC 40 MG/ML VIAL IV SCH (11:23)
--- NOTE | 2021-12-17 17:15 | NUR ---
Podiatry at bedside. New orders to follow. Will continue to monitor.
--- NOTE | 2021-12-17 17:22 | NUR ---
Wound care provided. Tolerated it well. Will continue to monitor.
[2021-12-17] MEDS: DOCUSATE SODIUM 100 MG CAPSULE PO SCH (21:11)
[2021-12-17] MEDS: INSULIN GLARGINE,HUM 300 UNITS/3 ML CARTRIDGE SQ SCH (21:24)
[2021-12-18] VITALS (11 sets, daily range): BP systolic 92–146; BP diastolic 62–87
[2021-12-18 05:03] LABS: HEMATOCRIT 36.4 % (31.2-41.9); MEAN CORPUSCULAR HEMOGLOBIN 28.8 uug (24.7-32.8); MEAN CORPUSCULAR VOLUME 89.4 fL (75.5-95.3); PLATELET COUNT (AUTO) 107 K/uL (179-408)
[2021-12-18 05:13] LABS: CREATININE 0.9 mg/dL (0.6-1.3); MAGNESIUM 2.2 mg/dL (1.8-2.4); PHOSPHOROUS 1.8 mg/dL (2.5-4.9); POTASSIUM 3.9 mmol/L (3.5-5.1)
[2021-12-18] MEDS: LACTULOSE 20 G/30 ML LIQUID UDC PO SCH ×3 (05:36→21:01)
[2021-12-18] MEDS: ACIDOPHILUS/BULGARICUS CHEW TAB PO SCH ×3 (05:37→21:00)
[2021-12-18 05:44] LABS: ABG BASE EXCESS 11.7 mmol/L; ABG HCO3 38.2 mmol/L; ABG PCO2 58.9 mmHg (35.0-45.0); ABG PO2 70.3 mmHg (75.0-100.0); ABG SITE LEFT RADIAL; ABG TOTAL HEMOGLOBIN 12.8 G/dL (12.0-16.0); MetHb 0.3 % (0.0-1.5); O2Hb 93.9 % (94.0-97.0); VENT MODE Nasal Cannula
[2021-12-18] MEDS: PANTOPRAZOLE SODIUM 40 MG TABLET.DR PO SCH (06:05)
--- NOTE | 2021-12-18 06:31 | NUR ---
Patient was complaining of constipation x 4 days. Pt received warm prune juice x 3 which had a good effect. BM x2. Patient received bed bath and linen change and is sitting on the bedside dangling her leg. Blood gases drawn on 0.5 Lt NC. Pts PH is 7.43, PCO2, is 58.9, PO2 is 100. Report endorced to day shift RN.
--- NOTE | 2021-12-18 08:00 | NUR ---
PT. seen by oil well services superintendent Dr. Xavier report given see order hx.
--- NOTE | 2021-12-18 08:10 | NUR ---
Pulmonary services, Dain Guillaume in the unit to see and follow up on pt. Report given orders to put pt. on bipap as ordered received.
[2021-12-18] MEDS ORDERED: POTASSIUM CHLORIDE 20 MEQ TAB.PRT.SR PO ONE (08:30)
[2021-12-18] MEDS ORDERED: ACETAzolamide SODIUM 500 MG VIAL IV ONE (08:30)
[2021-12-18] MEDS: BLOOD SUGAR DIAGNOSTIC 1 EACH STRIP VI SCH ×4 (08:46→20:36)
[2021-12-18] MEDS: FUROSEMIDE 40 MG/4 ML VIAL IV SCH ×2 (08:55→16:38)
[2021-12-18] MEDS: SPIRONOLACTONE 25 MG TABLET PO SCH (08:56)
[2021-12-18] MEDS: methylPREDNISolone SOD SUCC 40 MG/ML VIAL IV SCH (08:56)
[2021-12-18] MEDS: GLUCERNA SHAKE 237 ML CAN PO SCH ×2 (08:57→17:57)
[2021-12-18] MEDS: APIXABAN 5 MG TABLET PO SCH ×2 (08:57→20:26)
[2021-12-18] MEDS: REMEDY ESSENTIAL ZINC PASTE 113 GM TOP SCH ×2 (08:59→20:27)
[2021-12-18] MEDS: SILVER SULFADIAZINE 1% CREAM 50 GM TP SCH (08:59)
[2021-12-18] MEDS: CLOTRIMAZOLE/BETAMET DIPROP CREAM 15 GM TUBE TOP SCH ×2 (09:00→20:47)
[2021-12-18] MEDS: GENTAMICIN SULFATE 0.1% CREAM 15 GM TUBE TOP SCH ×2 (09:00→16:37)
[2021-12-18] MEDS ORDERED: POTASSIUM PHOSPHATE MM 15 MMOL in IV NORMAL SALINE 250 ML IV ONE (09:00)
[2021-12-18] MEDS: THERAHONEY GEL 1.5 OZ TUBE TOP SCH (09:01)
[2021-12-18] MEDS: CARVEDILOL 25 MG TABLET PO SCH ×2 (09:16→18:25)
--- NOTE | 2021-12-18 09:48 | NUR ---
Arrived to patients room awake, alert, and oriented. Patient had bowel movement upon arrival to patient's room. Patient cleaned and comfort measures provided. Patient assessment complete and charted. Patient receiving 0.5 L of oxygen via nasal canula saturating at 97%. Patient seen by Dr. Xavier, updated with patient's info and carrying out orders. Patient stating that she does not want to be here, despite doctor explaining reasoning behind medication regimen. During physical therapy, patient's heart rate elevated into the 150's when attempting to stand up from bed to walker. Patient to have another physical therapy session this afternoon to assess patients tolerance. Patient able to consume 75% of breakfast.
[2021-12-18] MEDS: INSULIN REGULAR, HUMAN 300 UNIT/3 ML VIAL SQ PRN ×2 (11:35→20:41)
[2021-12-18] MEDS: CEFEPIME HCL 1 G in IV DEXTROSE 5% 50 ML IV SCH ×2 (14:12→21:01)
--- NOTE | 2021-12-18 15:30 | NUR ---
Dr. Meier in the unit to examine pt's BLE.
--- NOTE | 2021-12-18 18:29 | NUR ---
A call to vacuum worker for an update on pt's condition, informed of total urine output and orders to hold 2100 lasix dose received, He was also informed of trend on sbp.
--- NOTE | 2021-12-18 19:00 | NUR ---
Received report. Patient is awake, sitting on bed, dangling legs. A/Ox3-4. Able to make needs known with assistance. On NC @0.5LPM, O2 sat 98%. Controlled Afib on the monitor, HR 112. NANO PICC line intact, flushed and patent. Funes catheter draining well to gravity. Will continue to monitor closely.
--- NOTE | 2021-12-18 19:45 | NUR ---
Family member at bedside, report given.
[2021-12-18] MEDS: DOCUSATE SODIUM 100 MG CAPSULE PO SCH (20:26)
[2021-12-18] MEDS: INSULIN GLARGINE,HUM 300 UNITS/3 ML CARTRIDGE SQ SCH (20:37)
--- NOTE | 2021-12-18 23:04 | NUR ---
BM x 1. Bed bath done. Linen changed.
--- NOTE | 2021-12-18 23:10 | NUR ---
Placed on bipap machine as ordered c/o RT Dilshad, tolerating well, O2 sat 95%.
[2021-12-19] VITALS (7 sets, daily range): BP systolic 91–134; BP diastolic 54–87
--- NOTE | 2021-12-19 00:55 | NUR ---
Patient had another BM x1, soft, brown in consistency. Linen changed. Patient resting comfortably with bipap machine on. VSS. No significant change of condition noted. Will continue to monitor closely.
--- NOTE | 2021-12-19 04:03 | NUR ---
PATIENT HAS BEEN ON BI/PAP SINCE 23:05, HELPING NURSING LIFT PT AND REPOSITION HER IN BED , PT AGREEING ON TRYING BI/PAP , WITH SETTINGS, 20/10,RR14,24%, PT CALMING DOWN, PT WITH MED MASK, PT LEAK ON, , WILL MONITOR AT NOC Rolan DESIR RCP Addendum: 12/19/21 at 0405 by JOSÉ MIGUEL DESIR RT Amended: Links added.
[2021-12-19 05:00] LABS: HEMATOCRIT 35.8 % (31.2-41.9); MEAN CORPUSCULAR HEMOGLOBIN 29.5 uug (24.7-32.8); MEAN CORPUSCULAR VOLUME 89.6 fL (75.5-95.3); PLATELET COUNT (AUTO) 93 K/uL (179-408)
[2021-12-19 05:09] LABS: CREATININE 0.8 mg/dL (0.6-1.3); MAGNESIUM 2.2 mg/dL (1.8-2.4); POTASSIUM 3.7 mmol/L (3.5-5.1)
[2021-12-19] MEDS: CEFEPIME HCL 1 G in IV DEXTROSE 5% 50 ML IV SCH ×3 (06:03→21:01)
[2021-12-19] MEDS: LACTULOSE 20 G/30 ML LIQUID UDC PO SCH ×3 (06:04→21:01)
[2021-12-19] MEDS: ACIDOPHILUS/BULGARICUS CHEW TAB PO SCH ×3 (06:04→21:01)
[2021-12-19] MEDS: PANTOPRAZOLE SODIUM 40 MG TABLET.DR PO SCH (06:04)
--- NOTE | 2021-12-19 06:31 | NUR ---
Patient removed from Bipap and placed on NC @0.5LPM c/o RT Dilshad.
--- NOTE | 2021-12-19 06:38 | NUR ---
Left patient awake, resting comfortably. VSS. NAD. Endorsed to AM shift RN for continuity of care.
[2021-12-19] MEDS: BLOOD SUGAR DIAGNOSTIC 1 EACH STRIP VI SCH ×4 (06:40→21:11)
[2021-12-19] MEDS: CARVEDILOL 25 MG TABLET PO SCH ×2 (07:52→17:53)
[2021-12-19] MEDS: SPIRONOLACTONE 25 MG TABLET PO SCH ×2 (07:53→09:07)
[2021-12-19] MEDS: FUROSEMIDE 40 MG/4 ML VIAL IV SCH (07:53)
[2021-12-19] MEDS: APIXABAN 5 MG TABLET PO SCH ×2 (07:54→20:04)
[2021-12-19] MEDS: GENTAMICIN SULFATE 0.1% CREAM 15 GM TUBE TOP SCH ×2 (07:55→17:10)
[2021-12-19] MEDS: REMEDY ESSENTIAL ZINC PASTE 113 GM TOP SCH ×2 (07:56→20:05)
[2021-12-19] MEDS: CLOTRIMAZOLE/BETAMET DIPROP CREAM 15 GM TUBE TOP SCH ×2 (07:56→20:04)
[2021-12-19] MEDS: THERAHONEY GEL 1.5 OZ TUBE TOP SCH (07:57)
[2021-12-19] MEDS: SILVER SULFADIAZINE 1% CREAM 50 GM TP SCH (07:58)
[2021-12-19] MEDS: GLUCERNA SHAKE 237 ML CAN PO SCH ×2 (08:04→09:45)
[2021-12-19] MEDS: predniSONE 10 MG TABLET PO SCH (08:04)
--- NOTE | 2021-12-19 08:14 | NUR ---
Pt.was seen by and with new orders.
[2021-12-19] MEDS ORDERED: ACETAzolamide SODIUM 500 MG VIAL IV ONE (08:30)
[2021-12-19] MEDS: POTASSIUM CHLORIDE 20 MEQ TAB.PRT.SR PO SCH ×2 (09:07→12:03)
--- NOTE | 2021-12-19 10:58 | NUR ---
family at bedside,was updated with pt.condition and plan of care.
[2021-12-19] MEDS: INSULIN REGULAR, HUMAN 300 UNIT/3 ML VIAL SQ PRN ×3 (12:02→21:12)
--- NOTE | 2021-12-19 15:30 | NUR ---
Pt.was seen by DAMION SALGADOM .BLE dressing was changed again.
[2021-12-19] MEDS: FUROSEMIDE 40 MG TABLET PO SCH (17:10)
--- NOTE | 2021-12-19 19:00 | NUR ---
Received report. Patient is awake, A/Ox3-4. Able to make needs known with assistance. Denies pain at this time. VSS. RA. No signs of acute distress noted. NANO PICC line intact, flushed and patent. Bed at lowest position, brakes on, siderailsx3. Call light within reach. Will continue to monitor closely.
--- NOTE | 2021-12-19 20:00 | NUR ---
Family member at bedside, report given.
[2021-12-19] MEDS: DOCUSATE SODIUM 100 MG CAPSULE PO SCH (20:03)
--- NOTE | 2021-12-19 21:00 | NUR ---
BASSAM Guzman at bedside, report given.
[2021-12-19] MEDS: INSULIN GLARGINE,HUM 300 UNITS/3 ML CARTRIDGE SQ SCH (21:13)
--- NOTE | 2021-12-19 22:44 | NUR ---
Placed on bipap machine c/o RT Henny, tolerating well, O2 sat 99%. Will continue to monitor closely.
[2021-12-20] VITALS: BP 125/81
--- NOTE | 2021-12-20 02:28 | NUR ---
Resting comfortably. No significant change of condition noted. Will continue to monitor closely.
[2021-12-20 04:00] VITALS: BP 118/68
[2021-12-20] MEDS: LACTULOSE 20 G/30 ML LIQUID UDC PO SCH ×3 (05:15→21:21)
[2021-12-20] MEDS: ACIDOPHILUS/BULGARICUS CHEW TAB PO SCH ×3 (05:15→21:19)
[2021-12-20] MEDS: CEFEPIME HCL 1 G in IV DEXTROSE 5% 50 ML IV SCH ×3 (05:15→21:19)
--- NOTE | 2021-12-20 05:50 | NUR ---
Bipap removed and placed on RA c/o RT Henny, tolerating well, O2 sat 97%. Will continue to monitor closely.
[2021-12-20 05:59] LABS: HEMATOCRIT 34.8 % (31.2-41.9); MEAN CORPUSCULAR HEMOGLOBIN 29.4 uug (24.7-32.8); MEAN CORPUSCULAR VOLUME 89.7 fL (75.5-95.3); PLATELET COUNT (AUTO) 87 K/uL (179-408)
--- NOTE | 2021-12-20 06:00 | NUR ---
AM care done. Linen changed.
[2021-12-20 06:08] LABS: CREATININE 0.7 mg/dL (0.6-1.3); MAGNESIUM 2.5 mg/dL (1.8-2.4); PHOSPHOROUS 2.4 mg/dL (2.5-4.9); POTASSIUM 3.9 mmol/L (3.5-5.1)
[2021-12-20] MEDS: PANTOPRAZOLE SODIUM 40 MG TABLET.DR PO SCH (06:11)
[2021-12-20 06:34] LABS: ABG BASE EXCESS 5.9 mmol/L; ABG HCO3 31.7 mmol/L; ABG PH 7.411 (7.350-7.450); ABG PO2 67.7 mmHg (75.0-100.0); ABG SITE RIGHT RADIAL; ABG TOTAL HEMOGLOBIN 12.2 G/dL (12.0-16.0); COHb 0.8 % (0.5-1.5); MetHb 0.1 % (0.0-1.5); O2Hb 92.8 % (94.0-97.0); VENT MODE ROOM AIR
[2021-12-20] MEDS: BLOOD SUGAR DIAGNOSTIC 1 EACH STRIP VI SCH ×4 (07:20→21:09)
--- NOTE | 2021-12-20 07:21 | NUR ---
Left patient awake, resting comfortably. VSS. NAD. Endorsed
[2021-12-20] MEDS: FUROSEMIDE 40 MG TABLET PO SCH ×2 (08:44→17:48)
[2021-12-20] MEDS: SPIRONOLACTONE 25 MG TABLET PO SCH (08:44)
[2021-12-20] MEDS: CARVEDILOL 25 MG TABLET PO SCH ×2 (08:44→17:48)
[2021-12-20] MEDS: predniSONE 10 MG TABLET PO SCH (08:46)
[2021-12-20] MEDS: APIXABAN 5 MG TABLET PO SCH ×2 (08:48→20:52)
[2021-12-20] MEDS: CLOTRIMAZOLE/BETAMET DIPROP CREAM 15 GM TUBE TOP SCH ×2 (08:53→21:08)
[2021-12-20] MEDS: GENTAMICIN SULFATE 0.1% CREAM 15 GM TUBE TOP SCH ×2 (08:53→17:49)
[2021-12-20] MEDS: THERAHONEY GEL 1.5 OZ TUBE TOP SCH (08:53)
[2021-12-20] MEDS: GLUCERNA SHAKE 237 ML CAN PO SCH (08:53)
[2021-12-20] MEDS: REMEDY ESSENTIAL ZINC PASTE 113 GM TOP SCH ×2 (08:53→21:09)
[2021-12-20] MEDS: SILVER SULFADIAZINE 1% CREAM 50 GM TP SCH (08:54)
[2021-12-20] MEDS ORDERED: POTASSIUM PHOSPHATE MM 15 MMOL in IV NORMAL SALINE 250 ML IV ONE (09:00)
[2021-12-20] MEDS: INSULIN REGULAR, HUMAN 300 UNIT/3 ML VIAL SQ PRN ×3 (11:45→21:17)
[2021-12-20 12:00] VITALS: BP 107/49
[2021-12-20 16:00] VITALS: BP 108/76
--- NOTE | 2021-12-20 19:00 | NUR ---
Received patient on bed, just arrived from ICU, fully awake, oriented x3-4, on room air. no complaint of pain. No shortness of breath. Able to identify her needs. Safety precautions provided, Call light within reach.
--- NOTE | 2021-12-20 19:15 | NUR ---
Per Am shift (Yosvany García) dr. Herrera noted result platelet 87, okay to give eliquis 5mg BID. No signs of bleeding noted.
[2021-12-20] MEDS: DOCUSATE SODIUM 100 MG CAPSULE PO SCH (21:00)
[2021-12-20] MEDS: INSULIN GLARGINE,HUM 300 UNITS/3 ML CARTRIDGE SQ SCH (21:08)
--- NOTE | 2021-12-20 22:40 | NUR ---
Dr. Guzman came and see the patient, , noted WBC result and platelet result, no new order was made, per MD continue Eliquis 5mg BID.
--- NOTE | 2021-12-20 22:40 | NUR ---
Dressing on both lower extremities soaked with wound discharge, dressing done as ordered for wound care.
--- NOTE | 2021-12-20 23:22 | NUR ---
Patient is alert and oriented, received on room air with no SOB noted at this time. BiPAP orders reviewed. Placed on ordered settings via medium full face mask. Mepilex in place for skin integrity. Patient tolerating settings well. Alarm parameters assessed : on/ audible. BiPAP machine connected to red outlet. No complications noted. Will continue to monitor throughout shift.
[2021-12-21] VITALS: BP 123/80
[2021-12-21 04:00] VITALS: BP 122/79
--- NOTE | 2021-12-21 05:29 | NUR ---
Patient slept well within the shift, no shortness of breath, no complaint of pain, no chest pain noted. On BIPAP at night, tolerated well. Patient in fair condition, with tele reading of Afib the whole shift, Heart rate range from 85/min-105//min
[2021-12-21] MEDS: CEFEPIME HCL 1 G in IV DEXTROSE 5% 50 ML IV SCH ×3 (05:53→21:09)
[2021-12-21] MEDS: PANTOPRAZOLE SODIUM 40 MG TABLET.DR PO SCH (05:54)
[2021-12-21] MEDS: ACIDOPHILUS/BULGARICUS CHEW TAB PO SCH ×3 (05:54→21:09)
[2021-12-21] MEDS: LACTULOSE 20 G/30 ML LIQUID UDC PO SCH ×3 (05:54→21:09)
[2021-12-21] MEDS: BLOOD SUGAR DIAGNOSTIC 1 EACH STRIP VI SCH ×4 (06:08→20:28)
[2021-12-21 06:23] LABS: ABG BASE EXCESS 5.4 mmol/L; ABG HCO3 30.6 mmol/L; ABG PCO2 47.6 mmHg (35.0-45.0); ABG PH 7.426 (7.350-7.450); ABG PO2 66.4 mmHg (75.0-100.0); ABG SITE RIGHT RADIAL; COHb 0.8 % (0.5-1.5); MetHb 0.1 % (0.0-1.5); VENT MODE ROOM AIR
--- NOTE | 2021-12-21 06:30 | NUR ---
Urine output in the Funes catheter 100cc, bloody, Dr Emilie Cornelius INJECTION OPERATOR notified, informed also platelet is 87. She said okay to give the Eliquis.
[2021-12-21 06:36] LABS: HEMATOCRIT 34.2 % (31.2-41.9); MEAN CORPUSCULAR HEMOGLOBIN 29.6 uug (24.7-32.8); MEAN CORPUSCULAR VOLUME 89.8 fL (75.5-95.3); PLATELET COUNT (AUTO) 87 K/uL (179-408)
[2021-12-21 07:19] LABS: CREATININE 0.8 mg/dL (0.6-1.3); MAGNESIUM 2.2 mg/dL (1.8-2.4); PHOSPHOROUS 2.6 mg/dL (2.5-4.9); POTASSIUM 3.9 mmol/L (3.5-5.1)
[2021-12-21] MEDS: CARVEDILOL 25 MG TABLET PO SCH ×2 (08:00→17:42)
[2021-12-21] MEDS ORDERED: POTASSIUM CHLORIDE 20 MEQ TAB.PRT.SR PO ONE (08:30)
--- NOTE | 2021-12-21 08:50 | NUR ---
Patient's potassium level is 3.9 WNL therefore scheduled dose of Potassium wasn't administered
[2021-12-21] MEDS: REMEDY ESSENTIAL ZINC PASTE 113 GM TOP SCH ×2 (08:53→20:22)
[2021-12-21] MEDS: FUROSEMIDE 40 MG TABLET PO SCH ×2 (09:20→17:09)
[2021-12-21] MEDS: APIXABAN 5 MG TABLET PO SCH ×2 (09:20→20:26)
[2021-12-21] MEDS: SPIRONOLACTONE 25 MG TABLET PO SCH (09:20)
[2021-12-21] MEDS: predniSONE 10 MG TABLET PO SCH (09:21)
[2021-12-21] MEDS: CLOTRIMAZOLE/BETAMET DIPROP CREAM 15 GM TUBE TOP SCH ×2 (09:21→20:21)
[2021-12-21] MEDS: GENTAMICIN SULFATE 0.1% CREAM 15 GM TUBE TOP SCH ×2 (09:36→17:13)
[2021-12-21] MEDS ORDERED: GLUCERNA SHAKE VANILLA 237 ML CAN PO SCH (10:30)
[2021-12-21] MEDS: GLUCERNA SHAKE 237 ML CAN PO SCH (10:32)
[2021-12-21 11:51] VITALS: BP 101/96
[2021-12-21] MEDS: THERAHONEY GEL 1.5 OZ TUBE TOP SCH (16:11)
[2021-12-21] MEDS: SILVER SULFADIAZINE 1% CREAM 50 GM TP SCH (16:11)
[2021-12-21 16:46] VITALS: BP 124/77
[2021-12-21] MEDS: INSULIN REGULAR, HUMAN 300 UNIT/3 ML VIAL SQ PRN ×2 (17:04→20:29)
--- NOTE | 2021-12-21 19:30 | NUR ---
Received pt awake, alert and orientedx4. Pt in no acute distress. Iv intact. Pt pack intact and draining well. Pt on room air. Family member at bedside. Safety and comfort provided. Will continue to monitor.
[2021-12-21] MEDS: DOCUSATE SODIUM 100 MG CAPSULE PO SCH (20:21)
[2021-12-21] MEDS: INSULIN GLARGINE,HUM 300 UNITS/3 ML CARTRIDGE SQ SCH (20:27)
[2021-12-21 20:36] VITALS: BP 120/64
--- NOTE | 2021-12-21 22:47 | NUR ---
Patient was received on room air with no SOB noted at this time. BiPAP orders reviewed. Placed on ordered settings via medium full face mask. Mepilex in place for skin integrity. Patient tolerating settings well. Alarm parameters assessed : on/ audible. BiPAP machine connected to red outlet. No complications noted. Will continue to monitor. Addendum: 12/22/21 at 0312 by SHRAVAN LEMUS RT CALLED TO ASSESS ALARM ON BIPAP. PATIENT NOTED TO BE SITTING AT BEDSIDE WITH OUT BIPAP. PATIENT IS REFUSING TO BE PLACED BACK ON BIPAP. RISKS AND BENEFITS EXPLAINED. ZEFERINO RODRIGUEZ NOTIFIED OF CHANGE. WILL CONTINUE TO MONITOR.
[2021-12-22 00:07] VITALS: BP 118/78
[2021-12-22 04:57] VITALS: BP 120/72
[2021-12-22] MEDS: ACIDOPHILUS/BULGARICUS CHEW TAB PO SCH ×3 (05:17→21:04)
[2021-12-22] MEDS: CEFEPIME HCL 1 G in IV DEXTROSE 5% 50 ML IV SCH (05:17)
[2021-12-22] MEDS: LACTULOSE 20 G/30 ML LIQUID UDC PO SCH ×3 (05:17→21:04)
[2021-12-22] MEDS: PANTOPRAZOLE SODIUM 40 MG TABLET.DR PO SCH (06:03)
--- NOTE | 2021-12-22 06:51 | NUR ---
Pt shows no signs of acute distress. Iv intact. Prescribed medication given and pt tolerated it well. Safety and comfort provided. All needs are met. Will endorse to incoming nurse for continuity of care.
[2021-12-22] MEDS: BLOOD SUGAR DIAGNOSTIC 1 EACH STRIP VI SCH ×4 (06:53→20:35)
[2021-12-22 07:22] LABS: HEMATOCRIT 34.8 % (31.2-41.9); MEAN CORPUSCULAR HEMOGLOBIN 29.3 uug (24.7-32.8); MEAN CORPUSCULAR VOLUME 89.4 fL (75.5-95.3); PLATELET COUNT (AUTO) 91 K/uL (179-408)
--- NOTE | 2021-12-22 08:00 | NUR ---
RECEIVED PATIENT IN BED AWAKE ALERT AND ORIENTED DENIES PAIN OR DISCOMFORTS AT THIS TIME ON ROOM AIR WITH NO SHORTNESS OF BREATH AT THOIS TIME TELE IS AFIB CONTROLLED.CHAVEZ CATH TO GRAVITY DRAINAGE WITH NO HEMATURIA AT THIS TIME.CALL LIGHTS AND PERSONAL BELONGINGS ARE WITHIN EASY REACH AT THIS TIME WILL CONTINUE TO OBSERVE.
[2021-12-22 08:12] LABS: MAGNESIUM 2.2 mg/dL (1.8-2.4); PHOSPHOROUS 2.2 mg/dL (2.5-4.9); POTASSIUM 3.6 mmol/L (3.5-5.1)
--- NOTE | 2021-12-22 08:30 | NUR ---
DR PERALTA MOTOR BIKE MECHANIC HERE SEEN PATIENT WITH NEW ORDERS AND NOTED.
[2021-12-22 08:32] LABS: CREATININE 0.8 mg/dL (0.6-1.3)
[2021-12-22] MEDS: predniSONE 10 MG TABLET PO SCH (08:50)
[2021-12-22] MEDS: FUROSEMIDE 40 MG TABLET PO SCH ×2 (08:50→16:19)
[2021-12-22] MEDS: CARVEDILOL 25 MG TABLET PO SCH ×2 (08:50→17:22)
[2021-12-22] MEDS: SPIRONOLACTONE 25 MG TABLET PO SCH (08:50)
[2021-12-22] MEDS: CLOTRIMAZOLE/BETAMET DIPROP CREAM 15 GM TUBE TOP SCH ×2 (08:53→20:19)
[2021-12-22] MEDS: GENTAMICIN SULFATE 0.1% CREAM 15 GM TUBE TOP SCH ×2 (08:54→17:22)
[2021-12-22] MEDS: APIXABAN 5 MG TABLET PO SCH ×2 (08:56→20:28)
[2021-12-22] MEDS: GLUCERNA SHAKE 237 ML CAN PO SCH (08:57)
[2021-12-22] MEDS: REMEDY ESSENTIAL ZINC PASTE 113 GM TOP SCH ×2 (08:57→20:19)
[2021-12-22] MEDS ORDERED: POTASSIUM PHOSPHATE MM 15 MMOL in IV NORMAL SALINE 250 ML IV ONE (09:00)
[2021-12-22] MEDS ORDERED: POTASSIUM CHLORIDE 20 MEQ POWDER PACKET GT ONE (09:30)
[2021-12-22] MEDS: THERAHONEY GEL 1.5 OZ TUBE TOP SCH (09:33)
[2021-12-22] MEDS: SILVER SULFADIAZINE 1% CREAM 50 GM TP SCH (09:34)
[2021-12-22] MEDS ORDERED: POTASSIUM CHLORIDE 20 MEQ TAB.PRT.SR PO ONE (09:45)
--- NOTE | 2021-12-22 09:53 | NUR ---
DR ESCALANTE HERE REVIEWED ORDERS AND PLAN OF CARE WITH NEW ORDERS AND NOTED.
[2021-12-22] MEDS: INSULIN REGULAR, HUMAN 300 UNIT/3 ML VIAL SQ PRN ×3 (11:33→20:33)
[2021-12-22 11:57] VITALS: BP 106/70
[2021-12-22 16:00] VITALS: BP_SYST 115; BP_SYST 131; BP_DIAS 70
[2021-12-22 17:59] LABS: BAND % (MANUAL) 1 % (0-10); LYMPHOCYTES % (MANUAL) 14 % (20-40); MONOCYTES % (MANUAL) 11 % (2-10); NEUTROPHILS % (MANUAL) 74 % (42-75)
--- NOTE | 2021-12-22 18:00 | NUR ---
POTASSIUM PHOSPHATE 15MMOL INFUSED ORDERED.
--- NOTE | 2021-12-22 19:30 | NUR ---
Received pt awake, alert and orientedx4. Pt in no acute distress. Pt on room air. Iv intact. Funes catheter intact and draining well. No hematuria noted. Family member at bedside. Safety and comfort provided. Will continue to monitor.
[2021-12-22] MEDS: DOCUSATE SODIUM 100 MG CAPSULE PO SCH (20:20)
[2021-12-22 20:26] VITALS: BP 119/76
[2021-12-22] MEDS: INSULIN GLARGINE,HUM 300 UNITS/3 ML CARTRIDGE SQ SCH (20:32)
--- NOTE | 2021-12-22 21:16 | NUR ---
Pt refused her Lactulose medication because as per pt: "she poop a lot already."Pt in no acute distress. Will continue to monitor
[2021-12-23 00:12] VITALS: BP 104/58
[2021-12-23] MEDS: ACETAMINOPHEN 325 MG TABLET PO PRN (00:58)
[2021-12-23 04:00] VITALS: BP 121/73
[2021-12-23] MEDS: PANTOPRAZOLE SODIUM 40 MG TABLET.DR PO SCH (06:01)
[2021-12-23] MEDS: ACIDOPHILUS/BULGARICUS CHEW TAB PO SCH ×3 (06:01→23:00)
[2021-12-23] MEDS: LACTULOSE 20 G/30 ML LIQUID UDC PO SCH ×3 (06:02→22:00)
[2021-12-23] MEDS: BLOOD SUGAR DIAGNOSTIC 1 EACH STRIP VI SCH ×4 (06:08→20:33)
--- NOTE | 2021-12-23 06:11 | NUR ---
Pt in no acute distress. Iv intact. Pt Funes intact and draining well.Pt on controlled afib and sometimes uncontrolled afib. Safety and comfort provided. Pt wound dressing intact and changed.Pt draining anuja colored urine. Will continue to monitor.
[2021-12-23 06:19] LABS: ABG BASE EXCESS 3.7 mmol/L; ABG HCO3 28.2 mmol/L; ABG PCO2 42.6 mmHg (35.0-45.0); ABG PH 7.439 (7.350-7.450); ABG PO2 73.6 mmHg (75.0-100.0); ABG SITE LEFT RADIAL; ABG TOTAL HEMOGLOBIN 11.7 G/dL (12.0-16.0); COHb 0.5 % (0.5-1.5); O2Hb 94.1 % (94.0-97.0); VENT MODE room air
[2021-12-23 07:07] LABS: HEMATOCRIT 33.2 % (31.2-41.9); MEAN CORPUSCULAR HEMOGLOBIN 29.6 uug (24.7-32.8); MEAN CORPUSCULAR VOLUME 88.9 fL (75.5-95.3); PLATELET COUNT (AUTO) 98 K/uL (179-408)
--- NOTE | 2021-12-23 07:25 | NUR ---
RECEIVED PATIENT IN BED AWAKE ALERT AND ORIENTED DENIES PAIN OR DISCOMFORTS AT THIS TIME TELE IS CONTROLLED ATRIAL FIB NO S/S OF HYPO/HYPERGLYCEMIC REACTIONS AT THIS TIME SANJANA LOWER EXT WITH DRESSING INTACT WITH EDEMA ELEVATED ON PILLOWS TO DECREASE EDEMA CALL LIGHTS AND PERSONAL BELONGINGS ARE WITHIN EASY REACH MADE COMFORTABLE WILL CONTINUE TO OBSERVE.
[2021-12-23 07:36] LABS: CREATININE 0.7 mg/dL (0.6-1.3); MAGNESIUM 2.2 mg/dL (1.8-2.4); PHOSPHOROUS 2.4 mg/dL (2.5-4.9); POTASSIUM 3.8 mmol/L (3.5-5.1)
--- NOTE | 2021-12-23 08:43 | NUR ---
PATIENT SEEN AND EXAMINED BY DR ESCALANTE AND FABIAN PHOS LEVEL IS 2.4 WITH NEW ORDER TO INFUSE K PHOS AND NOTED.
[2021-12-23] MEDS: CARVEDILOL 25 MG TABLET PO SCH ×2 (08:46→17:01)
[2021-12-23] MEDS: SPIRONOLACTONE 25 MG TABLET PO SCH (08:46)
[2021-12-23] MEDS: FUROSEMIDE 40 MG TABLET PO SCH ×2 (08:46→16:55)
[2021-12-23] MEDS: APIXABAN 5 MG TABLET PO SCH ×2 (08:47→20:39)
[2021-12-23] MEDS: GLUCERNA SHAKE 237 ML CAN PO SCH (08:48)
[2021-12-23] MEDS: GENTAMICIN SULFATE 0.1% CREAM 15 GM TUBE TOP SCH ×2 (08:49→16:56)
[2021-12-23] MEDS: CLOTRIMAZOLE/BETAMET DIPROP CREAM 15 GM TUBE TOP SCH ×2 (08:49→20:32)
[2021-12-23] MEDS: REMEDY ESSENTIAL ZINC PASTE 113 GM TOP SCH ×2 (08:51→20:33)
[2021-12-23] MEDS: THERAHONEY GEL 1.5 OZ TUBE TOP SCH (08:52)
[2021-12-23] MEDS: SILVER SULFADIAZINE 1% CREAM 50 GM TP SCH (08:52)
[2021-12-23] MEDS ORDERED: predniSONE 10 MG TABLET PO SCH (09:00)
[2021-12-23] MEDS: predniSONE 5 MG TABLET PO SCH (09:28)
[2021-12-23] MEDS ORDERED: POTASSIUM PHOSPHATE MM 15 MMOL in IV NORMAL SALINE 250 ML IV ONE (10:00)
--- NOTE | 2021-12-23 11:30 | NUR ---
SEEN IN THE HALLWAY WALKING WITH THE FRONT WHEEL WALKER WITH THE PHYSICAL THERAPY WITH FAIR ENDURANCE REMAIN ON ROOM AIR WITH NO SHORTNESS OF BREATH NOT IN DISTRESS AT THIS TIME.
[2021-12-23 11:40] LABS: NEUTROPHILS % (MANUAL) 0 % (42-75)
[2021-12-23 12:13] VITALS: BP 112/63
[2021-12-23 16:54] VITALS: BP 120/77
[2021-12-23] MEDS: INSULIN REGULAR, HUMAN 300 UNIT/3 ML VIAL SQ PRN ×2 (16:57→20:37)
--- NOTE | 2021-12-23 18:00 | NUR ---
RESTING IN BED SITTING FOR A LONG PEROIDS OF TIME ENCOURAGED TO LAY DOWN MUCH ABLE TO AVOID INCREASE SWELLING OF BOTH LOWER EXT AND SHE EXPRESSED UNDERSTANDING
--- NOTE | 2021-12-23 19:00 | NUR ---
Received patient alert oriented, no sob no chest pain, tele monitor. control afib, no complain of pain, Patient has family at bedside, no s/s of distress. cont to monitor.
[2021-12-23 20:06] VITALS: BP 94/64
[2021-12-23] MEDS: INSULIN GLARGINE,HUM 300 UNITS/3 ML CARTRIDGE SQ SCH (20:37)
[2021-12-23] MEDS: DOCUSATE SODIUM 100 MG CAPSULE PO SCH (20:39)
--- NOTE | 2021-12-24 | NUR ---
Patient refused Bipap machine per RT, patient sat 98% at room air. cont to monitor.
[2021-12-24 00:03] VITALS: BP 116/71
[2021-12-24 04:06] VITALS: BP 129/82
[2021-12-24] MEDS: LACTULOSE 20 G/30 ML LIQUID UDC PO SCH ×3 (06:11→21:02)
[2021-12-24] MEDS: ACIDOPHILUS/BULGARICUS CHEW TAB PO SCH ×3 (06:11→21:02)
[2021-12-24] MEDS: PANTOPRAZOLE SODIUM 40 MG TABLET.DR PO SCH (06:12)
[2021-12-24] MEDS: BLOOD SUGAR DIAGNOSTIC 1 EACH STRIP VI SCH ×4 (06:32→20:43)
[2021-12-24 06:41] LABS: HEMATOCRIT 33.9 % (31.2-41.9); MEAN CORPUSCULAR HEMOGLOBIN 29.7 uug (24.7-32.8); MEAN CORPUSCULAR VOLUME 89.3 fL (75.5-95.3); PLATELET COUNT (AUTO) 120 K/uL (179-408)
[2021-12-24 07:12] LABS: CREATININE 0.8 mg/dL (0.6-1.3); PHOSPHOROUS 2.9 mg/dL (2.5-4.9); POTASSIUM 3.9 mmol/L (3.5-5.1)
[2021-12-24] MEDS: FUROSEMIDE 40 MG TABLET PO SCH (08:39)
[2021-12-24] MEDS: predniSONE 5 MG TABLET PO SCH (08:39)
[2021-12-24] MEDS: SPIRONOLACTONE 25 MG TABLET PO SCH (08:40)
[2021-12-24] MEDS: CLOTRIMAZOLE/BETAMET DIPROP CREAM 15 GM TUBE TOP SCH ×2 (08:40→20:44)
[2021-12-24] MEDS: GENTAMICIN SULFATE 0.1% CREAM 15 GM TUBE TOP SCH (08:40)
[2021-12-24] MEDS: SILVER SULFADIAZINE 1% CREAM 50 GM TP SCH (08:41)
[2021-12-24] MEDS: GLUCERNA SHAKE 237 ML CAN PO SCH (08:41)
[2021-12-24] MEDS: THERAHONEY GEL 1.5 OZ TUBE TOP SCH (08:41)
[2021-12-24] MEDS: REMEDY ESSENTIAL ZINC PASTE 113 GM TOP SCH ×2 (08:41→20:42)
[2021-12-24] MEDS: CARVEDILOL 25 MG TABLET PO SCH ×2 (08:44→17:39)
[2021-12-24] MEDS: APIXABAN 5 MG TABLET PO SCH ×2 (08:45→20:33)
[2021-12-24] MEDS ORDERED: POTASSIUM CHLORIDE 20 MEQ TAB.PRT.SR PO ONE (08:45)
[2021-12-24] MEDS: INSULIN REGULAR, HUMAN 300 UNIT/3 ML VIAL SQ PRN ×3 (11:30→20:48)
[2021-12-24 11:40] VITALS: BP 102/61
[2021-12-24 16:42] VITALS: BP 130/89
--- NOTE | 2021-12-24 18:34 | NUR ---
Patient tolerated care well throughout shift with no complaints of distress or discomfort. Wound care management performed on both lower extremities. Cleanse with NS and applied Silvadine to both legs bilaterally. Patient's blood sugar managed through insulin needs. IV site patent and intact. Bed left in lowest position with call light within reach. Comfort measures provided. Will endorse information to PM nurse.
[2021-12-24 20:29] VITALS: BP 109/63
[2021-12-24] MEDS: DOCUSATE SODIUM 100 MG CAPSULE PO SCH (20:32)
[2021-12-24] MEDS: INSULIN GLARGINE,HUM 300 UNITS/3 ML CARTRIDGE SQ SCH (20:48)
[2021-12-25] VITALS: BP 105/66
--- NOTE | 2021-12-25 03:10 | NUR ---
Patient received on room air, no SOB noted at this time. BiPAP orders reviewed. Patient is refusing to be placed on BiPAP. Risks and benefits explained X3. RN notified. Will continue to monitor throughout shift.
[2021-12-25 04:00] VITALS: BP 133/90
--- NOTE | 2021-12-25 05:39 | NUR ---
Slept throughout the night. Pt refused bipap last night. Benefits of using bipap were explained to patient but she still refused. No distress noted. IV site intact. Denies SOB or pain. Able to make needs known. Funes draining to gravity. Safety maintained throughout the shift. Will endorse to day shift.
[2021-12-25] MEDS: PANTOPRAZOLE SODIUM 40 MG TABLET.DR PO SCH (06:20)
[2021-12-25] MEDS: LACTULOSE 20 G/30 ML LIQUID UDC PO SCH ×2 (06:21→14:04)
[2021-12-25] MEDS: ACIDOPHILUS/BULGARICUS CHEW TAB PO SCH ×2 (06:22→14:04)
[2021-12-25 06:26] LABS: HEMATOCRIT 33.4 % (31.2-41.9); MEAN CORPUSCULAR HEMOGLOBIN 29.3 uug (24.7-32.8); MEAN CORPUSCULAR VOLUME 89.3 fL (75.5-95.3); PLATELET COUNT (AUTO) 125 K/uL (179-408)
[2021-12-25] MEDS: BLOOD SUGAR DIAGNOSTIC 1 EACH STRIP VI SCH ×3 (06:33→16:21)
[2021-12-25 06:40] LABS: CREATININE 0.7 mg/dL (0.6-1.3); MAGNESIUM 2.1 mg/dL (1.8-2.4); PHOSPHOROUS 2.7 mg/dL (2.5-4.9); POTASSIUM 3.9 mmol/L (3.5-5.1)
[2021-12-25] MEDS: FUROSEMIDE 40 MG TABLET PO SCH (08:44)
[2021-12-25] MEDS: CARVEDILOL 25 MG TABLET PO SCH ×2 (08:44→17:43)
[2021-12-25] MEDS: predniSONE 5 MG TABLET PO SCH (08:45)
[2021-12-25] MEDS: SPIRONOLACTONE 25 MG TABLET PO SCH (08:45)
[2021-12-25] MEDS: REMEDY ESSENTIAL ZINC PASTE 113 GM TOP SCH (08:48)
[2021-12-25] MEDS: SILVER SULFADIAZINE 1% CREAM 50 GM TP SCH (08:48)
[2021-12-25] MEDS: CLOTRIMAZOLE/BETAMET DIPROP CREAM 15 GM TUBE TOP SCH (08:48)
[2021-12-25] MEDS: THERAHONEY GEL 1.5 OZ TUBE TOP SCH (08:49)
[2021-12-25] MEDS: APIXABAN 5 MG TABLET PO SCH (08:52)
[2021-12-25] MEDS: GLUCERNA SHAKE 237 ML CAN PO SCH (08:55)
[2021-12-25 12:09] VITALS: BP 101/64
--- NOTE | 2021-12-25 12:13 | NUR ---
patient ambulated to bathroom wearing non-skid socks with assistance of fww upon entering bathroom patient slipped but did not fall, assisted patient onto bathroom and back to bed.
[2021-12-25] MEDS: INSULIN REGULAR, HUMAN 300 UNIT/3 ML VIAL SQ PRN ×2 (12:21→16:22)
[2021-12-25] MEDS ORDERED: PRED-170 PO (13:00)
[2021-12-25] MEDS ORDERED: SPIR25TA PO (13:00)
[2021-12-25] MEDS ORDERED: CARV25TA2 PO (13:00)
[2021-12-25] MEDS ORDERED: PANT40TA49 PO (13:00)
[2021-12-25] MEDS ORDERED: Insulin Glargine,Hum SQ (13:00)
[2021-12-25] MEDS ORDERED: MENT113O TOP (13:00)
[2021-12-25] MEDS ORDERED: CLOT15CR36 TOP (13:00)
[2021-12-25] MEDS ORDERED: APIX5TAB PO (13:00)
[2021-12-25] MEDS ORDERED: FURO40TA5 PO (13:00)
--- NOTE | 2021-12-25 14:00 | NUR ---
new discharge order reminded patient to "follow up with primary healthcare provider in 1 week. follow up with physical therapy. follow up with a beer maker. follow up with dr. ricks with regards to a sleep study. continue taking medication as prescribed. return to nearest hospital or call 911 if symptoms worsen. " patient states understanding. inventory paperwork and discharge paper work signed. education provided on properly dressing leg wounds. all questions answered.
[2021-12-25 16:04] VITALS: BP 102/60
[2021-12-25 17:43] VITALS: BP 112/70
--- NOTE | 2021-12-25 18:59 | NUR ---
sister in unit picking up patient. educated sister as well, sister states understanding. patient upon discharge with v/s wnl, no c.o pain or discomfort. assisted patient onto car. ensured all belongings were taken with patient.
== END 2021-12-25 18:59 | disposition home or self-care (01) | DRG 720 ==
LOC: ER 12:17 → TRANSITION 16:23 → CCU 12-02 20:13 → TRANSITION 12-04 07:46 → TELE3 12-05 10:15 → CCU 12-13 16:30 → TELE3 12-20 18:59
PROVIDERS: ADMIT Internal Medicine; ATTEND Nurse Practitioner Acute Care
PROC: 05H533Z Insertion of Infusion Device into Right Subclavian Vein, Percutaneous Approach (ICD-10-PCS; 2021-12-02)
PROC: B546ZZA Ultrasonography of Right Subclavian Vein, Guidance (ICD-10-PCS; 2021-12-02)
PROC: 0JBP3ZZ Excision of Left Lower Leg Subcutaneous Tissue and Fascia, Percutaneous Approach (ICD-10-PCS; 2021-12-03)
PROC: 0JBN3ZZ Excision of Right Lower Leg Subcutaneous Tissue and Fascia, Percutaneous Approach (ICD-10-PCS; 2021-12-03)
PROC: B547ZZA Ultrasonography of Left Subclavian Vein, Guidance (ICD-10-PCS; 2021-12-05)
PROC: 05H633Z Insertion of Infusion Device into Left Subclavian Vein, Percutaneous Approach (ICD-10-PCS; 2021-12-05)
PROC: 5A09357 Assistance with Respiratory Ventilation, Less than 24 Consecutive Hours, Continuous Positive Airway Pressure (ICD-10-PCS; 2021-12-15)
PROC: 0JBP3ZZ Excision of Left Lower Leg Subcutaneous Tissue and Fascia, Percutaneous Approach (ICD-10-PCS; principal; 2021-12-17)
PROC: 0JBN3ZZ Excision of Right Lower Leg Subcutaneous Tissue and Fascia, Percutaneous Approach (ICD-10-PCS; principal; 2021-12-17)
PROC: 0JBN3ZZ Excision of Right Lower Leg Subcutaneous Tissue and Fascia, Percutaneous Approach (ICD-10-PCS; 2021-12-24)
PROC: 0JBP3ZZ Excision of Left Lower Leg Subcutaneous Tissue and Fascia, Percutaneous Approach (ICD-10-PCS; 2021-12-24)
DX: A41.9 Sepsis, unspecified organism (principal); N17.0 Acute kidney failure with tubular necrosis; J96.21 Acute and chronic respiratory failure with hypoxia; E43 Unspecified severe protein-calorie malnutrition; G92.8 Other toxic encephalopathy; D68.59 Other primary thrombophilia; I50.21 Acute systolic (congestive) heart failure; E87.4 Mixed disorder of acid-base balance; I21.A1 Myocardial infarction type 2; D69.6 Thrombocytopenia, unspecified; J96.22 Acute and chronic respiratory failure with hypercapnia; E66.2 Morbid (severe) obesity with alveolar hypoventilation; I48.91 Unspecified atrial fibrillation; I13.0 Hypertensive heart and chronic kidney disease with heart failure and stage 1 through stage 4 chronic kidney disease, or unspecified chronic kidney disease; N18.9 Chronic kidney disease, unspecified; L03.116 Cellulitis of left lower limb; L03.115 Cellulitis of right lower limb; B96.5 Pseudomonas (aeruginosa) (mallei) (pseudomallei) as the cause of diseases classified elsewhere; B95.2 Enterococcus as the cause of diseases classified elsewhere; E11.65 Type 2 diabetes mellitus with hyperglycemia; E78.5 Hyperlipidemia, unspecified; E87.5 Hyperkalemia; E87.6 Hypokalemia; E88.09 Other disorders of plasma-protein metabolism, not elsewhere classified; Z86.73 Personal history of transient ischemic attack (TIA), and cerebral infarction without residual deficits; Z79.01 Long term (current) use of anticoagulants; Z20.822 Contact with and (suspected) exposure to COVID-19; Z74.09 Other reduced mobility; Z68.42 Body mass index [BMI] 45.0-49.9, adult; L40.9 Psoriasis, unspecified; F41.9 Anxiety disorder, unspecified; E11.51 Type 2 diabetes mellitus with diabetic peripheral angiopathy without gangrene; I42.9 Cardiomyopathy, unspecified; I87.313 Chronic venous hypertension (idiopathic) with ulcer of bilateral lower extremity; L97.828 Non-pressure chronic ulcer of other part of left lower leg with other specified severity; L97.818 Non-pressure chronic ulcer of other part of right lower leg with other specified severity; J01.00 Acute maxillary sinusitis, unspecified; J32.0 Chronic maxillary sinusitis; I08.1 Rheumatic disorders of both mitral and tricuspid valves; B96.1 Klebsiella pneumoniae [K. pneumoniae] as the cause of diseases classified elsewhere; B96.20 Unspecified Escherichia coli [E. coli] as the cause of diseases classified elsewhere; E11.22 Type 2 diabetes mellitus with diabetic chronic kidney disease; I25.10 Atherosclerotic heart disease of native coronary artery without angina pectoris; I27.20 Pulmonary hypertension, unspecified; I77.1 Stricture of artery
CPT/HCPCS: 36415; 36600; 70030-TC; 70450; 71045; 76705; 76770; 82803; 83605; 83690; 83735; 83970; 84100; 84155; 84156; 84165; 84300; 84443; 84484; 85025; 85730; 87040; 87070; 87077; 87086; 93005; 93307; 94640; 94660; 94664; 97161; 97535-GO-CO; 99082-TC; A4663; A6209; G0378; J0360; J0692; J0878; J1120; J1644; J1650; J1815; J1940; J2020; J2270; J2543; J2920; J3370; J3480; J3490; J3590; J7040; J7050; J7060; J7512; J7614; J8499; Q9967